=== PATIENT | male | born 1970 | race Caucasian/White ===

== ENCOUNTER 2018-01-27 15:10 | Emergency (ER) | payer OTHER ==
[2018-01-27] MEDS ORDERED: NA CHLORIDE 0.9% 2,000 ML ONE (15:33)
--- NOTE | 2018-01-27 15:39 | RAD REPORT ---
EXAM DESCRIPTION: CT - Head Brain Wo Cont - 01/27/2018 3:31 pm CLINICAL HISTORY: Blurred vision COMPARISON: 2007 TECHNIQUE: Computed axial tomography of the head was obtained. IV contrast was not requested. All CT scans are performed using dose optimization technique as appropriate and may include automated exposure control or mA/KV adjustment according to patient size. FINDINGS: An intracranial bleed is not seen . The ventricles are normal in caliber. No extra-axial fluid collection is noted. Moderate ethmoid sinusitis is present. IMPRESSION: No acute intracranial abnormality is seen. If patient's symptoms persist MRI of the bra in would be recommended. The exam was discussed with Dr Wallace in the Emergency Room at approximately 3:25 p.m. January 27, 2018
[2018-01-27 15:41] LABS: Absolute Lymphocytes (CBC) 1.1 K/uL (0.7-4.9); Absolute Monocytes 0.4 K/uL (0.1-1.3); Absolute Neutrophil 3.8 K/uL (1.8-8.0); Basophils % 0.4 % (0-1.3); Eosinophils % 0.7 % (0-4.4); Hematocrit 46.7 % (39.6-49.0); Lymphocytes % 20.6 % (15.3-44.8); MCH 28.7 pg (27.0-35.0); MCV 85.8 fL (80-100); MPV 8.3 fL (7.6-11.3); Monocytes % 7.1 % (3.3-12.3); RBC Red Blood Cell Count 5.44 M/uL (4.33-5.43)
[2018-01-27 15:43] LABS: Potassium 3.3 mEq/L (3.6-5.0)
[2018-01-27] MEDS ORDERED: NA CHLORIDE 0.9% 100 ML with POTASSIUM CL 10 MEQ IV ONE ×2 (17:00)
--- NOTE | 2018-01-27 17:37 | ER ---
Nurse's Notes [facility] Name: Yonatan Rosario Age: 47 yrs Sex: Male : 1970 Arrival Date: 01/27/2018 Time: 15:12 Bed 28 Private MD: Talib Muñoz Diagnosis: Dehydration;Alcohol dependence with withdrawal, unspecified;Hypokalemia Presentation: 01/27 15:12 Presenting complaint: Significant other states: "he has been sick with strep but today aa5 his vision started getting blurry and he started having slurred speech and then he stopped talking to me and he was just staring into space". Pt currently not speaking in triage. 15:12 Acuity: ARTUR 2 aa5 15:12 Transition of care: patient was not received from another setting of care. Onset of aa5 symptoms was January 27, 2018 at 13:30. Care prior to arrival: None. 15:12 Method Of Arrival: Wheelchair aa5 15:13 Note Pt taken to room 28, pt now speaking, pt currently A \\T\\ O x 4, hoarse voice noted, aa5 pt slow to answer questions, speech is not slurred at this time. 15:13 Transition of care: patient was not received from another setting of care. No acute aj neurological deficit is noted. Pre-hospital glucose is not applicable to this patient. Onset of symptoms was January 27, 2018. Risk Assessment: Do you want to hurt yourself or someone else? Patient reports no desire to harm self or others. Care prior to arrival: None. 15:13 Acuity: ARTUR 3 aj 15:13 Method Of Arrival: Wheelchair aj 18:07 Initial Sepsis Screen: Does the patient meet any 2 criteria? No. Patient's initial rk2 sepsis screen is negative. 18:07 Initial Sepsis Screen: Does the patient have a suspected source of infection? No. rk2 Patient's initial sepsis screen is negative. Triage Assessment: 18:06 The onset of the patients symptoms was January 27, 2018 at 18:06. General: Appears in no rk2 apparent distress. Stroke Activation: Symtpom onset >3 hours and < 6 hours Physician: Stroke Attending; Name: not notified; Notified At: 15:13; Arrived At: Physician: Chief Stroke Resident; Name: not notified; Notified At: 15:13; Arrived At: Physician: Stroke Resident; Name: ; Notified At: 15:13; Arrived At: Physician: ED Attending; Name: ; Notified At: 15:13; Arrived At: Physician: ED Resident; Name: ; Notified At: ; Arrived At: Historical: - Allergies: 15:15 No Known Allergies; aa5 - PMHx: 15:15 None; aa5 - PSHx: 15:15 None; aa5 - Immunization history:: Adult Immunizations up to date. - Family history:: not pertinent. - Social history:: Smoking status: Patient/guardian denies using tobacco, Patient uses alcohol, Patient reports being a heavy drinker that stopped 2 weeks ago and is in a program for alcohol addiction. - Ebola Screening: : Patient negative for fever greater than or equal to 101.5 degrees Fahrenheit, and additional compatible Ebola Virus Disease symptoms. - Hospitalizations: : No recent hospitalization is reported. Screenin:40 Abuse screen: Denies threats or abuse. Denies injuries from another. Nutritional aj screening: No deficits noted. Tuberculosis screening: No symptoms or risk factors identified. Fall Risk None identified. Assessment: 15:40 The patient has not been NPO before screening. The patient is alert, and able to follow aj commands. The patient does not exhibit slurred or garbled speech. The patient is not exhibiting difficulty speaking. The patient does not exhibit difficulty understanding words. Patient tolerated one teaspoon of water. No drooling, immediate coughing, gurgling, or clearing of the throat was noted. The patient tolerated 90mL of water. No drooling, immediate coughing, gurgling, or clearing of the throat was noted. The patient passed the bedside swallow screening. Oral medications may be given as ordered. Contact Physician for further diet orders. Provider notified of bedside swallow screening results: Terry Wallace MD. T-PA (Activase) Screening: Contraindications: Other: Provider declined. General: Appears in no apparent distress. comfortable, Behavior is calm, cooperative, appropriate for age. Pain:. Neuro: Level of Consciousness is awake, alert, obeys commands, Oriented to person, place, time, situation, Appropriate for age Legal Receptionist are equal bilaterally Moves all extremities. Full function Gait is steady, Speech is normal, Facial symmetry appears normal, Pupils are PERRLA, Intact. Respiratory: Airway is patent Respiratory effort is even, unlabored, Respiratory pattern is regular, symmetrical. EENT: Reports pain when swallowing. Derm: Skin is intact, is healthy with good turgor, Skin is pink, warm \\T\\ dry. normal. 17:15 Reassessment: Pt. resting in room \\T\\ this time, iv fluids and K+ infusing... family \\T\\ rk 2 bedside. Pt. is alert/oriented x 4. Vital Signs: 15:15 BP 144 / 86; Pulse 97; Resp 16 S; Pulse Ox 100% on R/A; aa5 15:40 BP 144 / 86; Pulse 64; Resp 16; Pulse Ox 100% on R/A; aj 17:00 BP 132 / 86; Pulse 86; Resp 17; Pulse Ox 100% on R/A; rk2 18:00 BP 145 / 85; Pulse 97; Resp 17; Pulse Ox 100% on R/A; rk2 NIH Stroke Scale Scores: 15:40 NIHSS Score: 0 aj ED Course: 15:12 Patient arrived in ED. iw 15:13 Arm band placed on Patient placed in an exam room, on a stretcher. aa5 15:15 Terry Wallace MD is Attending Physician. rn 15:18 Initial lab(s) drawn, by nd, sent to lab. Inserted saline lock: 20 gauge in left iw antecubital area, using aseptic technique. Blood collected. 15:21 Pina Xie, RN is Primary Nurse. aj 15:[address] via stretcher. nj 15:23 Triage completed. aa5 15:26 CT completed. Patient tolerated procedure well. Patient moved back from CT. nj 15:31 CT Head Brain wo Cont In Process Unspecified. EDMS 15:36 Talib Muñoz MD is Private Physician. as 15:40 Patient has correct armband on for positive identification. Placed in gown. Bed in low aj position. Call light in reach. Side rails up X 1. Adult w/ patient. site monitor on. Pulse ox on. NIBP on. 15:42 X-ray completed. Portable x-ray completed in exam room. Patient tolerated procedure bb2 well. 15:43 CXR XRAY - STROKE In Process Unspecified. EDMS 15:49 EKG done, by engineering technician parking. reviewed by Terry Wallcae MD. at1 17:35 Talib Muñoz MD is Referral Physician. rn 18:06 No provider procedures requiring assistance completed. IV discontinued. rk2 Administered Medications: 15:35 Drug: NS 0.9% 1000 ml Route: IV; Rate: 1000 ml; Site: left antecubital; aj 16:30 Follow up: Response: No adverse reaction; IV Status: Completed infusion rk2 15:36 Drug: NS 0.9% 1000 ml Route: IV; Rate: 1000 ml; Site: left antecubital; aj 17:00 Follow up: Response: No adverse reaction; IV Status: Completed infusion rk2 16:55 Drug: Potassium Chloride 10 mEq Route: IV; Rate: calculated rate; Site: left rk2 antecubital; 17:58 Follow up: Response: No adverse reaction; IV Status: Completed infusion rk2 Point of Care Testing: Blood Glucose: 15:20 Blood Glucose: 126 mg/dL; iw Ranges: Outcome: 17:36 Discharge ordered by MD. rn 18:06 Discharged to home ambulatory. rk2 18:06 Condition: good 18:06 Discharge instructions given to patient, family. 18:09 Patient left the ED. rk2 NIH Stroke Scale - NIH Stroke Score Date: 01/27/2018 Time: 15:40 Total Score = 0 1a. Level of Consciousness (LOC) - 0(Alert) 1b. Level of Consciousness (LOC) (Year \\T\\ Age) - 0(Both) 1c. LOC Commands (Open \\T\\ Closes Eyes/E Business Project Manager) - 0(Both) 2. Best Gaze (Lateral Gaze Paresis) - 0(Normal) 3. Visual Field Loss - 0(No visual loss) 4. Facial Palsy - 0(Normal) 5a. Left Arm: Motor (10-second hold) - 0(No drift) 5b. Right Arm: Motor (10-second hold) - 0(No drift) 6a. Left Leg: Motor (5-second hold - always test supine) - 0(No drift) 6b. Right Leg: Motor (5-second hold - always test supine) - 0(No drift) 7. Limb Ataxia (finger/nose \\T\\ heel/chandler - test with eyes open) - 0(Absent) 8. Sensory Loss (pinprick arms/legs/face) - 0(Normal) 9. Best Language: Aphasia (description/naming/reading) - 0(No aphasia) 10. Dysarthria (speech clarity - read or repeat words) - 0(Normal) 11. Extinction and Inattention (visual/tactile/auditory/spatial/personal) - 0(No abnormality) Initials: stan Signatures: Dispatcher [employer] Pina Caicedo, RN RN Alissa Alonzo Irene, RN RN Terry Cheema MD MD rn Calderon, Audri RN RN aa5 Pina gutierres, gis technician EKG Tat1 Rodolfo Mcnulty Brittany bb2 Karen Garcia RN RN rk2
--- NOTE | 2018-01-27 17:37 | EDPHYS ---
Physician Documentation [facility] Name: Yonatan Rosario Age: 47 yrs Sex: Male : 1970 Arrival Date: 01/27/2018 Time: 15:12 Bed 28 Private MD: Talib Muñoz ED Physician Terry Wallace HPI: 01/27 15:35 This 47 yrs old Male presents to ER via Wheelchair with complaints of AMS. rn 15:35 The patient presents with decreased responsiveness. Onset: The symptoms/episode rn began/occurred today. Possible causes: unknown. Associated signs and symptoms: Pertinent positives: confusion, lightheadedness, weakness. Current symptoms: In the emergency department the patient's symptoms are unchanged from the initial presentation. The patient has experienced similar episodes in the past. Family reports diagnosed with strep recently and told had scarlet fever at ER, given abx, + a few days of generalized weakness, got worse today, having difficulty standing up due to weakness, similar presentations in past with heat stroke per family, family reports difficulty speaking but has now improved, patient denies pain, follows commands, moves all 4 extremities, appears weak all over and dehydrated.. Historical: - Allergies: 15:15 No Known Allergies; aa5 - PMHx: 15:15 None; aa5 - PSHx: 15:15 None; aa5 - Immunization history:: Adult Immunizations up to date. - Family history:: not pertinent. - Social history:: Smoking status: Patient/guardian denies using tobacco, Patient uses alcohol, Patient reports being a heavy drinker that stopped 2 weeks ago and is in a program for alcohol addiction. - Ebola Screening: : Patient negative for fever greater than or equal to 101.5 degrees Fahrenheit, and additional compatible Ebola Virus Disease symptoms. - Hospitalizations: : No recent hospitalization is reported. ROS: 15:35 Constitutional: Negative for fever, chills, and weight loss, Eyes: Negative for injury, rn pain, redness, and discharge, Neck: Negative for injury, pain, and swelling, Cardiovascular: Negative for chest pain, palpitations, and edema, Respiratory: Negative for shortness of breath, cough, wheezing, and pleuritic chest pain, Abdomen/GI: Negative for abdominal pain, nausea, vomiting, diarrhea, and constipation, + decreased appetite Back: Negative for injury and pain, MS/Extremity: Negative for injury and deformity, Skin: Negative for injury, rash, and discoloration, Neuro: Negative for, numbness, tingling, and seizure. Exam: 15:35 Constitutional: This is a well developed, well nourished patient who is awake, alert, rn and in no acute distress. Head/Face: Normocephalic, atraumatic. Eyes: Pupils equal round and reactive to light, extra-ocular motions intact. Lids and lashes normal. Conjunctiva and sclera are non-icteric and not injected. Cornea within normal limits. Periorbital areas with no swelling, redness, or edema. Neck: Trachea midline, no thyromegaly or masses palpated, and no cervical lymphadenopathy. Supple, full range of motion without nuchal rigidity, or vertebral point tenderness. No Meningismus. Cardiovascular: Regular rate and rhythm with a normal S1 and S2. No gallops, murmurs, or rubs. Normal PMI, no JVD. No pulse deficits. Respiratory: Lungs have equal breath sounds bilaterally, clear to auscultation and percussion. No rales, rhonchi or wheezes noted. No increased work of breathing, no retractions or nasal flaring. Abdomen/GI: Soft, non-tender, with normal bowel sounds. No distension or tympany. No guarding or rebound. No evidence of tenderness throughout. Skin: Warm, dry with normal turgor. Normal color with no rashes, no lesions, and no evidence of cellulitis. MS/ Extremity: Pulses equal, no cyanosis. Neurovascular intact. Full, normal range of motion. Equal circumference. Neuro: Awake and alert, GCS 15, oriented to person, place, time, and situation. Cranial nerves II-XII grossly intact. Motor strength 5/5 in all extremities. Sensory grossly intact. + generalized tremor and tongue fasciculations. Vital Signs: 15:15 BP 144 / 86; Pulse 97; Resp 16 S; Pulse Ox 100% on R/A; aa5 15:40 BP 144 / 86; Pulse 64; Resp 16; Pulse Ox 100% on R/A; aj 17:00 BP 132 / 86; Pulse 86; Resp 17; Pulse Ox 100% on R/A; rk2 18:00 BP 145 / 85; Pulse 97; Resp 17; Pulse Ox 100% on R/A; rk2 NIH Stroke Scale Scores: 15:40 NIHSS Score: 0 aj MDM: 15:15 Patient medically screened. rn 15:26 ED course: GCS 3, NIH 0, family reports recent fever/headache, diagnosed with strep, + rn generalized weakness over last few days but worse today. Normal neuro exam except for generalized tremor and tongue fasciculations. Possible alcohol withdrawal with dehydration, family reports similar symptoms in past and diagnosed with heat stroke. . 15:32 ED course: Head CT normal. No indication for TPA, normal neuro exam. . rn 17:35 Differential Diagnosis: electrolyte abnormality, hypoglycemia, intracranial bleed, rn volume depletion. Data reviewed: vital signs, nurses notes, lab test result(s), EKG, radiologic studies, CT scan, plain films, and as a result, I will discharge patient. Counseling: I had a detailed discussion with the patient and/or guardian regarding: the historical points, exam findings, and any diagnostic results supporting the discharge/admit diagnosis, lab results, radiology results, the need for outpatient follow up, to return to the emergency department if symptoms worsen or persist or if there are any questions or concerns that arise at home. Response to treatment: the patient's symptoms have markedly improved after treatment, the patient's condition has returned to base line, patient is well hydrated. and as a result, I will discharge patient. Special discussion: I discussed with the patient/guardian in detail that at this point there is no indication for admission to the hospital. It is understood, however, that if the symptoms persist or worsen the patient needs to return immediately for re-evaluation. 01/27 15:25 Order name: CBC with Diff; Complete Time: 16:01/27 15:25 Order name: Basic Metabolic Panel; Complete Time: 16:01/27 15:25 Order name: CT Head Brain wo Cont; Complete Time: 16:01/27 15:25 Order name: Procalcitonin; Complete Time: 16:01/27 15:25 Order name: Lagrange Screen Profile; Complete Time: 16:01/27 15:25 Order name: Troponin (emerg Dept Use Only); Complete Time: 16:01/27 15:25 Order name: IV Start; Complete Time: 15:01/27 15:25 Order name: EKG; Complete Time: 15:01/27 15:25 Order name: EKG - Nurse/Tech; Complete Time: 15:36 rn 01/27 15:37 Order name: CXR XRAY - STROKE bd Administered Medications: 15:35 Drug: NS 0.9% 1000 ml Route: IV; Rate: 1000 ml; Site: left antecubital; aj 16:30 Follow up: Response: No adverse reaction; IV Status: Completed infusion rk2 15:36 Drug: NS 0.9% 1000 ml Route: IV; Rate: 1000 ml; Site: left antecubital; aj 17:00 Follow up: Response: No adverse reaction; IV Status: Completed infusion rk2 16:55 Drug: Potassium Chloride 10 mEq Route: IV; Rate: calculated rate; Site: left rk2 antecubital; 17:58 Follow up: Response: No adverse reaction; IV Status: Completed infusion rk2 Point of Care Testing: Blood Glucose: 15:20 Blood Glucose: 126 mg/dL; iw Ranges: Critical Glucose Levels:Adult <50 mg/dl or >400 mg/dl <40 mg/dl or >180 mg/dl Disposition: 01/27/18 17:36 Discharged to Home. Impression: Dehydration, Alcohol dependence with withdrawal, unspecified, Hypokalemia. - Condition is Stable. - Discharge Instructions: Alcohol Withdrawal, Dehydration, Adult, Potassium Content of Foods, Hypokalemia. - Medication Reconciliation Form, Thank You Letter, Antibiotic Education, Prescription Opioid Use form. - Follow up: Talib Muñoz MD; When: As needed; Reason: Recheck today's complaints, Re-evaluation by your physician. - Problem is new. - Symptoms have improved. NIH Stroke Scale - NIH Stroke Score Date: 01/27/2018 Time: 15:40 Total Score = 0 1a. Level of Consciousness (LOC) - 0(Alert) 1b. Level of Consciousness (LOC) (Year \T\ Age) - 0(Both) 1c. LOC Commands (Open \T\ Closes Eyes/Powder Shoveler) - 0(Both) 2. Best Gaze (Lateral Gaze Paresis) - 0(Normal) 3. Visual Field Loss - 0(No visual loss) 4. Facial Palsy - 0(Normal) 5a. Left Arm: Motor (10-second hold) - 0(No drift) 5b. Right Arm: Motor (10-second hold) - 0(No drift) 6a. Left Leg: Motor (5-second hold - always test supine) - 0(No drift) 6b. Right Leg: Motor (5-second hold - always test supine) - 0(No drift) 7. Limb Ataxia (finger/nose \T\ heel/chandler - test with eyes open) - 0(Absent) 8. Sensory Loss (pinprick arms/legs/face) - 0(Normal) 9. Best Language: Aphasia (description/naming/reading) - 0(No aphasia) 10. Dysarthria (speech clarity - read or repeat words) - 0(Normal) 11. Extinction and Inattention (visual/tactile/auditory/spatial/personal) - 0(No abnormality) Initials: stan Signatures: Dispatcher [employer] EDPina Zheng RN Terry Marin MD MD rn Calderon, Audri RN RN aa5 Karen Garcia RN RN rk2 Corrections: (The following items were deleted from the chart) 18:09 17:36 01/27/2018 17:36 Discharged to Home. Impression: Dehydration; Alcohol rk2 dependence with withdrawal, unspecified; Hypokalemia. Condition is Stable. Forms are Medication Reconciliation Form, Thank You Letter, Antibiotic Education, Prescription Opioid Use. Follow up: Talib Muñoz; When: As needed; Reason: Recheck today's complaints, Re-evaluation by your physician. Problem is new. Symptoms have improved. rn
--- NOTE | 2018-01-27 19:32 | RAD REPORT ---
EXAM DESCRIPTION: Puneet Single View01/27/2018 3:45 pm CLINICAL HISTORY: Chest pain COMPARISON: February 2017 FINDINGS: The lungs appear clear of acute infiltrate. The heart is normal size IMPRESSION: No acute abnormalities displayed
--- NOTE | 2018-01-28 07:42 | EKG ---
Test Date: 2018-01-27 Test Time: 15:32:19 Channel Executive: MISBAH/ MEASUREMENT RESULTS: Intervals: Rate: 95 RI: 128 QRSD: 88 QT: 350 QTc: 439 Evant: P: 55 RI: 128 QRS: 64 T: 49 INTERPRETIVE STATEMENTS: Normal sinus rhythm Normal ECG Compared to ECG 03/07/2017 18:13:31 No significant changes Electronically Signed On 01-28-18 07:41:52 CDT by Cm Villatoro
== END 2018-01-27 18:09 | disposition home or self-care (01) ==
LOC: ER 15:10
DX: E86.0 Dehydration (principal); F10.239 Alcohol dependence with withdrawal, unspecified; E87.6 Hypokalemia; Z72.0 Tobacco use
CPT/HCPCS: 36415; 70450; 71045; 80048; 82962; 84145; 84484; 85025; 86308; 93005; 96361; 96365; 99285; J7030

== ENCOUNTER 2018-05-04 06:40 | Emergency (ER) | payer OTHER ==
--- OUTSIDE RECORDS SUMMARY | 2018-05-04 06:42 | XMS REPORT | Clinical Summary ---
:1970 Author Organization [facility] Address [address] [place] [address] Care Team Providers Name Role Phone Talib Muñoz MD Primary Care Provider Allergies No Known Allergies Current Medications Prescription Sig. Disp. Refills Start Date End Date Status ibuprofen (ADVIL,MOTRIN) Take 200 mg by Active 200 MG tablet mouth every 6 (six) hours as needed for mild pain. Active Problems Problem Noted Date HNP (herniated nucleus pulposus), lumbar 02/19/2018 Acute bilateral low back pain with left-sided sciatica 02/19/2018 Lumbar radiculopathy, chronic 02/19/2018 Encounters Date Type Specialty Care Team Description 05/01/2018 Refill Robert Bell MD 03/03/2018 Telephone Neurosurgery Aneta Tolentino LVN 02/19/2018 Hospital Encounter Robert Antoine MD 02/19/2018 Hospital Encounter Robert Antoine, Acute low back pain, unspecified back pain laterality, with sciatica presence unspecified; Lumbar radiculopathy 02/19/2018 Hospital Encounter Robert Antoine, Acute low back pain, unspecified back pain laterality, with sciatica presence unspecified; Lumbar radiculopathy 02/19/2018 Office Visit Robert Bell, HNP (herniated nucleus pulposus), lumbar (Primary Dx); Acute bilateral low back pain with left-sided sciatica; Lumbar radiculopathy, chronic 02/19/2018 Procedure Pass Radiology 02/19/2018 Ancillary Orders Robert Antoine MD 02/19/2018 Orders Only Neurosurgery Aneta Tolentino LVN Acute bilateral low back pain, with sciatica presence unspecified (Primary Dx); Lumbar radiculopathy 02/19/2018 Orders Only Neurosurgery Aneta Tolentino LVN Acute low back pain, unspecified back pain laterality, with sciatica presence unspecified (Primary Dx ); Lumbar radiculopathy after 05/03/2017 Family History Medical History Relation Name Comments Arthritis Mother Hypertension Mother Relation Name Status Comments Mother Social History Tobacco Use Types Packs/Day Years Used Date Never Smoker Smokeless Tobacco: Current User Snuff Alcohol Use Drinks/Week oz/Week Comments Yes ocassional Sex Assigned at Date Recorded Not on file Last Filed Vital Signs Vital Sign Reading Time Taken Blood Pressure - - Pulse - - Temperature - - Respiratory Rate - - Oxygen Saturation - - Inhaled Oxygen Concentration - - Weight 76.2 kg (168 lb) 02/19/2018 3:10 PM CDT Height 167.6 cm (5' 6") 02/19/2018 3:10 PM CDT Body Mass Index 27.12 02/19/2018 3:10 PM CDT Plan of Treatment Health Maintenance Due Date Last Done Comments INFLUENZA VACCINE 03/25/2018 Procedures Procedure Name Priority Date/Time Associated Diagnosis Comments XR LUMBAR SPINE Routine 02/19/2018 5:07 Acute low back pain, Results for this COMPLETE W BENDING PM CDT unspecified back pain procedure are in laterality, with the results sciatica presence section. unspecified Lumbar radiculopathy XR SPINE SCOLIOSIS Routine 02/19/2018 4:57 Acute low back pain, Results for this 2-3 VIEWS PM CDT unspecified back pain procedure are in laterality, with the results sciatica presence section. unspecified Lumbar radiculopathy MRI SPINE EXTERNAL Routine 12/03/2017 9:46 Results for this STUDY AM CDT procedure are in the results section. after 05/03/2017 Results XR Lumbar Spine Complete W Flex and Ext (02/19/2018 5:07 PM) Narrative Performed At EXAMINATION:XR LUMBAR SPINE COMPLETE W FLEX & EXTEND RADIANT CLINICAL HISTORY:M54.5 Low back pain, M54.16 Radiculopathylumbar region, RADICULOPATHY COMPARISON:None. IMPRESSION: 6 views of lumbar spine were obtained. 5 nonrib-bearing lumbar type vertebrae. No pars defects on the oblique views. Lumbar spine alignment is within normal limits. Mild to moderate disc space narrowing and endplate degenerative changes at L4-5. No compression fractures or aggressive bony lesions. No abnormal motion on flexion-extension views. [facility]-[id number] Procedure Note Interface, Radiology Results Incoming - 02/19/2018 5:46 PM CDT EXAMINATION: XR LUMBAR SPINE COMPLETE W FLEX & EXTEND CLINICAL HISTORY: M54.5 Low back pain, M54.16 Radiculopathy lumbar region, RADICULOPATHY COMPARISON: None. IMPRESSION: 6 views of lumbar spine were obtained. 5 nonrib-bearing lumbar type vertebrae. No pars defects on the oblique views. Lumbar spine alignment is within normal limits. Mild to moderate disc space narrowing and endplate degenerative changes at L4- 5. No compression fractures or aggressive bony lesions. No abnormal motion on flexion-extension views. [facility]-[id number] Performing Organization Address [email or web address] Phone Number [facility] [address] [place] [address] XR Spine Scoliosos 2-3 Views (02/19/2018 4:57 PM) Narrative Performed At EXAMINATION:XR SPINE SCOLIOSIS 2-3 VIEWS [facility] CLINICAL HISTORY:M54.5 Low back pain, M54.16 Radiculopathylumbar region, radiculopathy COMPARISON:None. IMPRESSION: 8 views of the whole spine were obtained. Mild convexity of the mid thoracic spine to the right. Alignment in sagittal plane is within normal limits. No compression fractures or aggressive bony lesions. Mild multilevel endplate degenerative changes. [facility]-[id number] Procedure Note Interface, Radiology Results Incoming - 02/19/2018 5:22 PM CDT EXAMINATION: XR SPINE SCOLIOSIS 2-3 VIEWS CLINICAL HISTORY: M54.5 Low back pain, M54.16 Radiculopathy lumbar region, radiculopathy COMPARISON: None. IMPRESSION: 8 views of the whole spine were obtained. Mild convexity of the mid thoracic spine to the right. Alignment in sagittal plane is within normal limits. No compression fractures or aggressive bony lesions. Mild multilevel endplate degenerative changes. [facility]-[id number] Performing Organization Address [email or web address] Phone Number [facility] [address] [place] [address] MRI Spine External Study (12/03/2017 9:46 AM) Narrative Performed At This exam was not acquired at a [facility] facility and has not been RADIANT interpreted by a [facility] Provider.The exam was imported into our imaging system for comparisons purposes. Performing Organization Address [facility]/[employer] Phone Number [facility]BY [address] [place] [address] after 05/03/2017 Insurance Payer Benefit Plan / Group Subscriber ID Type Phone Address ENTRUST ENTRUST xxxxxxxxx Commercial Home: [phone] [place] [phone]
--- OUTSIDE RECORDS SUMMARY | 2018-05-04 06:42 | XMS REPORT | Continuity of Care Document ---
:1970 Author Organization Interface Problems Problem Status Onset Classification Date Comments Source Date Reported J40 - Active OPID "BRONCHITIS, 7 Four States NOT SPECIFIED A" Medications Medication Details Route Status Patient Ordering Order Source Instructions Provider Date Allergies, Adverse Reactions, Alerts Substance Category Reaction Severity Reaction Status Date Comments Source type Reported Immunizations Immunization Date Given Site Status Last Updated Comments Source Results Order Results Value Reference Date Interpretation Comments Source Name Range Chest 2 Chest 2 EXAM: Chest 2 views DX OPID views DX views DX 2016 - Sugar HISTORY: R05 Cough, J40 Bronchitis, not specified as acute or chronic - cough/ shortness of breath, R05 Cough, J40 Bronchitis, not specified as acute or chronic [place] COMPARISON: None Read by: Lindsay Stovall MD Dictated Date/time: 05/19/17 14:45 Electronically Signed by: Lindsay Stovall MD 05/19/17 14:46 FINAL REPORT The heart size is normal and the lungs are clear. There is no pleural effusion or pneumothorax. No acute skeletal abnormality. IMPRESSION: No acute abnormality. Vital Signs Vital Sign Value Date Comments Source Encounters Location Location Encounter Encounter Reason Attending ADM DC Status Source Details Type Number For Provider Date Date Visit Outpatient [id number] WARREN 05/19 Active [facility] Procedures Procedure Code Date Perfomer Comments Source
[2018-05-04] MEDS ORDERED: TETRACAINE HCL 0.5% 2ML OPTH ONE (06:58)
[2018-05-04] MEDS ORDERED: FLUORESCEIN SODIUM 0.6 MG/WRAP ONE (06:59)
[2018-05-04] MEDS ORDERED: TETANUS & DIPHTHERIA TOX,ADULT 0.5 ML VIAL ONE (07:15)
[2018-05-04] MEDS ORDERED: TOBRAMYCIN SULF 0.3% OPTH OINT ONE (07:56)
[2018-05-04] MEDS ORDERED: GENTAMICIN 0.3% OPTH DROP 5ML ONE (07:58)
--- NOTE | 2018-05-04 08:02 | EDPHYS ---
Physician Documentation [facility] Name: Yonatan Rosario Age: 47 yrs Sex: Male : 1970 Arrival Date: 05/04/2018 Time: 06:43 Bed 8 Private MD: Talib Muñoz ED Physician Edouard Vila HPI: 05/04 07:50 This 47 yrs old Male presents to ER via Ambulatory with complaints of Right pm1 eye foreign body sensation. 07:50 The patient is experiencing foreign body sensation, pain, The patient sustained pm1 Unknown. 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 Onset: The symptoms/episode began/occurred 2 day(s) ago. Duration: the symptoms are continuous. Aggravated by nothing. Alleviated by nothing. Associated signs and symptoms: Pertinent positives: blurred right vision, Pertinent negatives: fever, eye matting or drainage. Patient does not utilize any form of vision correction. Severity of symptoms: in the emergency department the symptoms are worse. The patient has not experienced similar symptoms in the past. The patient has not recently seen a physician. Patient wearing eye mcgee while cutting metal and wood on Friday. 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 Historical: - Allergies: 06:59 No Known Allergies; bp - Home Meds: 06:59 methylprednisolone 16 mg Oral tab 1 tab three times a day [Active]; gabapentin 300 mg bp oral cap 1 cap 3 times per day [Active]; Flexeril 10 mg Oral tab 1 tab 3 times per day [Active]; - PMHx: 06:59 Back pain; bp - Immunization history:: Adult Immunizations up to date, Last tetanus immunization: unknown. - Social history:: Smoking status: Patient uses tobacco products, chewing tobacco. - Ebola Screening: : Patient negative for fever greater than or equal to 101.5 degrees Fahrenheit, and additional compatible Ebola Virus Disease symptoms Patient denies exposure to infectious person Patient denies travel to an Ebola-affected area in the 21 days before illness onset No symptoms or risks identified at this time. ROS: 07:50 Constitutional: Negative for fever, chills, and weight loss, ENT: Negative for injury, pm1 pain, and discharge, Neck: Negative for injury, pain, and swelling, Cardiovascular: Negative for chest pain, palpitations, and edema, Respiratory: Negative for shortness of breath, cough, wheezing, and pleuritic chest pain, Abdomen/GI: Negative for abdominal pain, nausea, vomiting, diarrhea, and constipation, Back: Negative for injury and pain, MS/Extremity: Negative for injury and deformity, Skin: Negative for injury, rash, and discoloration. 07:50 Neuro: Negative for headache, weakness, numbness, tingling, and seizure. 07:50 Eyes: Positive for blurry vision, foreign body sensation, pain, Negative for discharge, itching, matting. Exam: 07:50 Visual Acuity: I have reviewed the nursing documentation. pm1 07:50 Constitutional: This is a well developed, well nourished patient who is awake, alert, and in no acute distress. Head/Face: Normocephalic, atraumatic. 07:50 ENT: Nares patent. No nasal discharge, no septal abnormalities noted. Tympanic membranes are normal and external auditory canals are clear. Oropharynx with no redness, swelling, or masses, exudates, or evidence of obstruction, uvula midline. Mucous membranes moist. Neck: Trachea midline, no thyromegaly or masses palpated, and no cervical lymphadenopathy. Supple, full range of motion without nuchal rigidity, or vertebral point tenderness. No Meningismus. Chest/axilla: Normal chest wall appearance and motion. Nontender with no deformity. No lesions are appreciated. Cardiovascular: Regular rate and rhythm with a normal S1 and S2. No gallops, murmurs, or rubs. Normal PMI, no JVD. No pulse deficits. Respiratory: Lungs have equal breath sounds bilaterally, clear to auscultation and percussion. No rales, rhonchi or wheezes noted. No increased work of breathing, no retractions or nasal flaring. Abdomen/GI: Soft, non-tender, with normal bowel sounds. No distension or tympany. No guarding or rebound. No evidence of tenderness throughout. Back: No spinal tenderness. No costovertebral tenderness. Full range of motion. Skin: Warm, dry with normal turgor. Normal color with no rashes, no lesions, and no evidence of cellulitis. MS/ Extremity: Pulses equal, no cyanosis. Neurovascular intact. Full, normal range of motion. 07:50 Eyes: Periorbital structures: appear normal, Pupils: no acute changes, normal size, shape is regular, normal accomodation, normal reaction to light, Extraocular movements: intact throughout, Conjunctiva: normal, Corneas: foreign body, on the right, at 3 o'clock, small black speck, a fluorescein strip employed to appreciate the findings, Sclera: no appreciated abnormality, Lids and lashes: upper right eyelid with mild swelling. 07:50 Neuro: Orientation: is normal, Motor: is normal, moves all fours, Gait: is steady, at a normal pace, without difficulty. Vital Signs: 06:59 BP 142 / 104; Pulse 72; Resp 16; Temp 97.7; Pulse Ox 100% ; Weight 81.65 kg; Height 5 bp ft. 6 in. (167.64 cm); 07:14 BP 124 / 89; Pulse 82; Resp 17; Pulse Ox 99% on R/A; tw2 08:07 BP 132 / 96; Pulse 76; Resp 17; Pulse Ox 99% on R/A; tw2 06:59 Body Mass Index 29.05 (81.65 kg, 167.64 cm) bp Visual Acuity: 07:12 Left Eye Visual acuity 20/20, ; Right Eye Visual acuity 20/50, ; Both Eyes Visual dh3 acuity 20/20; Without Lenses; Procedures: 07:50 Foreign Body Removal: black speck at 3 o'clock of cornea, from the right eye, pm1 conjunctiva by using a cotton-tipped swab, The patient tolerated the removal well. MDM: 06:46 Patient medically screened. pm1 07:50 Data reviewed: vital signs. Data interpreted: Pulse oximetry: on room air is 99 %. pm1 Interpretation: normal. Counseling: I had a detailed discussion with the patient and/or guardian regarding: the historical points, exam findings, and any diagnostic results supporting the discharge/admit diagnosis. 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 Exp: tw2 05/21/2020. Lot #: [id number]. } Route: IM; Site: right deltoid; 07:57 Follow up: Response: No adverse reaction tw2 07:40 Drug: Tetracaine Drops 0.5 % 1 drops {Note: by MATEUSZ Kitchen.} Route: Ophthalmic; tw2 Site: right eye; 07:53 Follow up: Response: No adverse reaction tw2 07:55 Drug: Gentamicin Drops 0.3 % 2 drops Route: Ophthalmic; Site: right eye; tw2 07:57 Follow up: Response: No adverse reaction tw2 07:57 CANCELLED (not available in pxysis): ToBREx Drops (0.3 %) 2 drops Ophthalmic once tw2 Disposition: 05/04/18 08:01 Discharged to Home. Impression: Injury of conjunctiva and corneal abrasion without foreign body, right eye - foreign body removed. - Condition is Stable. - Discharge Instructions: Corneal Abrasion, Eye Foreign Body. - Prescriptions for Vigamox 0.5 % Ophthalmic Drops - instill 1 drop by OPHTHALMIC route every 8 hours for 7 days; 5 milliliter. - Medication Reconciliation Form, Thank You Letter, Antibiotic Education, Prescription Opioid Use, Work release form form. - Follow up: Wei Marino MD; When: 1 - 2 days; Reason: Recheck today's complaints, Continuance of care, Re-evaluation by your physician. - Problem is new. - Symptoms have improved. Addendum: 05/05/2018 19:05 Co-signature as Attending Physician, Edouard Vila MD. p Signatures: Edouard Vila MD MD pkl Alexis Che, [place] VIDEO PRESENTATION OPERATOR pm1 Lachelle Garcia RN RN tw2 Les Snyder RN RN bp Corrections: (The following items were deleted from the chart) 05/04 07:57 07:49 ToBREx Drops (0.3 %) 2 drops Ophthalmic once ordered. pm1 tw2 08:02 08:01 05/04/2018 08:01 Discharged to Home. Impression: Injury of conjunctiva and pm1 corneal abrasion without foreign body, right eye - foreign body removed. Condition is Stable. Forms are Work release form, Medication Reconciliation Form, Thank You Letter, Antibiotic Education, Prescription Opioid Use. pm1 08:10 08:02 05/04/2018 08:01 Discharged to Home. Impression: Injury of conjunctiva and tw2 corneal abrasion without foreign body, right eye - foreign body removed. Condition is Stable. Forms are Work release form, Medication Reconciliation Form, Thank You Letter, Antibiotic Education, Prescription Opioid Use. Follow up: Wei Marino; When: 1 - 2 days; Reason: Recheck today's complaints, Continuance of care, Re-evaluation by your physician. Problem is new. Symptoms have improved. pm1
--- NOTE | 2018-05-04 08:02 | ER ---
Nurse's Notes [facility] Name: Yonatan Rosario Age: 47 yrs Sex: Male : 1970 Arrival Date: 05/04/2018 Time: 06:43 Bed 8 Private MD: Talib Muñoz Diagnosis: Injury of conjunctiva and corneal abrasion without foreign body, right eye-foreign body removed Presentation: 05/04 06:45 Presenting complaint: Patient states: R EYE FB SENSATION WITH REDNESS/SWELLING AND bp BLURRY VISION. Transition of care: patient was not received from another setting of care. Mechanism of Injury: Environmental exposure FIBERGLASS AND LUMBER. The patient reports a positive loss of vision. The patient's loss of vision began gradually 1 day ago. Onset of symptoms was May 02, 2018. Risk Assessment: Do you want to hurt yourself or someone else? Patient reports no desire to harm self or others. Initial Sepsis Screen: Does the patient meet any 2 criteria? No. Patient's initial sepsis screen is negative. Does the patient have a suspected source of infection? No. Patient's initial sepsis screen is negative. Care prior to arrival: None. 06:45 Method Of Arrival: Ambulatory bp 06:45 Acuity: ARTUR 3 bp Triage Assessment: 06:59 General: Appears in no apparent distress. comfortable, Behavior is calm, cooperative, bp appropriate for age. Pain: Complains of pain in right eye. EENT: Eyes are tearing on outer aspect of conjuctiva of right eye, iris of right eye, inner aspect of conjuctiva of right eye and right inner canthus. Neuro: Level of Consciousness is awake, alert, obeys commands, Oriented to person, place, time, situation, Appropriate for age. Cardiovascular: No deficits noted. Respiratory: Airway is patent Respiratory effort is even, unlabored, Respiratory pattern is regular, symmetrical. GI: No signs and/or symptoms were reported involving the gastrointestinal system. : No signs and/or symptoms were reported regarding the genitourinary system. Derm: No deficits noted. Musculoskeletal: Circulation, motion, and sensation intact. Range of motion: intact in all extremities. Historical: - Allergies: 06:59 No Known Allergies; bp - Home Meds: 06:59 methylprednisolone 16 mg Oral tab 1 tab three times a day [Active]; gabapentin 300 mg bp oral cap 1 cap 3 times per day [Active]; Flexeril 10 mg Oral tab 1 tab 3 times per day [Active]; - PMHx: 06:59 Back pain; bp - Immunization history:: Adult Immunizations up to date, Last tetanus immunization: unknown. - Social history:: Smoking status: Patient uses tobacco products, chewing tobacco. - Ebola Screening: : Patient negative for fever greater than or equal to 101.5 degrees Fahrenheit, and additional compatible Ebola Virus Disease symptoms Patient denies exposure to infectious person Patient denies travel to an Ebola-affected area in the 21 days before illness onset No symptoms or risks identified at this time. Screenin:08 Abuse screen: Denies threats or abuse. Nutritional screening: No deficits noted. tw2 Tuberculosis screening: No symptoms or risk factors identified. Fall Risk None identified. Assessment: 07:05 Reassessment: see triage assessment. tw2 07:15 Reassessment: Patient appears in no apparent distress at this time. Patient and/or tw2 family updated on plan of care and expected duration. Pain level reassessed. Patient is alert, oriented x 3, equal unlabored respirations, skin warm/dry/pink. 08:09 EENT: Sclera/Cornea w/ abrasion noted on inner aspect of conjuctiva of right eye. tw2 08:10 Reassessment: Patient appears in no apparent distress at this time. Patient and/or tw2 family updated on plan of care and expected duration. Pain level reassessed. Patient is alert, oriented x 3, equal unlabored respirations, skin warm/dry/pink. Vital Signs: 06:59 BP 142 / 104; Pulse 72; Resp 16; Temp 97.7; Pulse Ox 100% ; Weight 81.65 kg; Height 5 bp ft. 6 in. (167.64 cm); 07:14 BP 124 / 89; Pulse 82; Resp 17; Pulse Ox 99% on R/A; tw2 08:07 BP 132 / 96; Pulse 76; Resp 17; Pulse Ox 99% on R/A; tw2 06:59 Body Mass Index 29.05 (81.65 kg, 167.64 cm) bp Visual Acuity: 07:12 Left Eye Visual acuity 20/20, ; Right Eye Visual acuity 20/50, ; Both Eyes Visual dh3 acuity 20/20; Without Lenses; ED Course: 06:43 Patient arrived in ED. al2 06:44 Talib Muñoz MD is Private Physician. al2 06:45 Alexis Che [facility]. pm1 06:45 Edouard Vila MD is Attending Physician. pm1 06:46 Les Snyder, HIRA is Primary Nurse. bp 06:55 Triage completed. bp 06:59 Arm band placed on. bp 07:00 Bed in low position. Call light in reach. Pulse ox on. NIBP on. tw2 07:10 Primary Nurse role handed off by Les Snyder, HIRA tw2 07:10 Lachelle Garcia RN is Primary Nurse. tw2 08:02 Wei Marino MD is Referral Physician. pm1 08:08 Assist provider with eye exam of right eye. using ophthalmoscope, Performed by Alexis Che NP Patient tolerated well. Patient did not have IV access during this emergency room visit. 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 Exp: 05/21/2020. Lot #: [id number]. } Route: IM; Site: right deltoid; 07:57 Follow up: Response: No adverse reaction tw2 07:40 Drug: Tetracaine Drops 0.5 % 1 drops {Note: by MATEUSZ Kitchen.} Route: Ophthalmic; tw2 Site: right eye; 07:53 Follow up: Response: No adverse reaction tw2 07:55 Drug: Gentamicin Drops 0.3 % 2 drops Route: Ophthalmic; Site: right eye; tw2 07:57 Follow up: Response: No adverse reaction tw2 07:57 CANCELLED (not available in pxysis): ToBREx Drops (0.3 %) 2 drops Ophthalmic once tw2 Outcome: 08:01 Discharge ordered by . pm1 08:09 Discharged to home ambulatory. tw2 08:09 Condition: stable 08:09 Discharge instructions given to patient, Instructed on discharge instructions, follow up and referral plans. medication usage, Demonstrated understanding of instructions, follow-up care, medications, Prescriptions given X 1. 08:10 Patient left the ED. tw2 Signatures: Alexis Che NP BEAM BUILDER pm1 Lachelle Garcia RN RN tw2 [facility] Les Snyder RN RN bp Love, Bree al2
== END 2018-05-04 08:10 | disposition home or self-care (01) ==
LOC: ER 06:40
PROC: 08C8XZZ Extirpation of Matter from Right Cornea, External Approach (ICD-10-PCS; principal; 2018-05-04)
DX: T15.91XA Foreign body on external eye, part unspecified, right eye, initial encounter (principal); S05.01XA Injury of conjunctiva and corneal abrasion without foreign body, right eye, initial encounter; X58.XXXA Exposure to other specified factors, initial encounter; Y93.89 Activity, other specified; Y92.89 Other specified places as the place of occurrence of the external cause; Z23 Encounter for immunization
CPT/HCPCS: 90714; 99284

== ENCOUNTER 2018-07-30 17:29 | Observation (INO) | payer OTHER ==
--- OUTSIDE RECORDS SUMMARY | 2018-07-30 17:31 | XMS REPORT | Clinical Summary ---
:1970 Author Organization [facility] Address [address] [place] [address] Care Team Providers Name Role Phone Talib Muñoz MD Primary Care Provider Allergies No Known Allergies Medications Medication Sig Dispensed Refills Start Date End Date Status ibuprofen Take 200 mg by 0 Active (ADVIL,MOTRIN) 200 MG mouth every 6 tablet (six) hours as needed for mild pain. Active Problems Problem Noted Date HNP (herniated nucleus pulposus), lumbar 02/19/2018 Acute bilateral low back pain with left-sided sciatica 02/19/2018 Lumbar radiculopathy, chronic 02/19/2018 Encounters Date Type Specialty Care Team Description 05/01/2018 Refill Robert Bell MD 03/03/2018 Telephone Neurosurgery Aneta Tolentino LVN 02/19/2018 Hospital Encounter Radiology Robert Dye MD 02/19/2018 Hospital Encounter Robert Antoine, Acute low back pain, unspecified back pain laterality, with sciatica presence unspecified; Lumbar radiculopathy 02/19/2018 Hospital Encounter Robert Antoine, Acute low back pain, unspecified back pain laterality, with sciatica presence unspecified; Lumbar radiculopathy 02/19/2018 Office Visit Robert Bell, HNP (herniated nucleus pulposus), lumbar (Primary Dx); Acute bilateral low back pain with left-sided sciatica; Lumbar radiculopathy, chronic 02/19/2018 Orders Only Neurosurgery Aneta Tolentino LVN Acute bilateral low back pain, with sciatica presence unspecified (Primary Dx); Lumbar radiculopathy 02/19/2018 Orders Only Neurosurgery Aneta Tolentino LVN Acute low back pain, unspecified back pain laterality, with sciatica presence unspecified (Primary Dx ); Lumbar radiculopathy after 07/29/2017 Family History Medical History Relation Name Comments Arthritis Mother Hypertension Mother Relation Name Status Comments Mother Social History Tobacco Use Types Packs/Day Years Used Date Never Smoker Smokeless Tobacco: Current User Snuff Alcohol Use Drinks/Week oz/Week Comments Yes ocassional Sex Assigned at Date Recorded Not on file Job Start Date Occupation Industry Not on file Not on file Not on file Travel History Travel Start Travel End No recent travel history available. Last Filed Vital Signs Vital Sign Reading [...] Date Last Done Comments INFLUENZA VACCINE 03/25/2018 HEPATITIS B VACCINES Aged Out No longer eligible based on patient's age to complete this topic IPV VACCINES Aged Out No longer eligible based on patient's age to complete this topic MENINGOCOCCAL VACCINE Aged Out No longer eligible based on patient's age to complete this topic Procedures Procedure Name Priority Date/Time Associated Diagnosis [...] procedure are in the results section. after 07/29/2017 Results XR Lumbar Spine Complete W Flex and Ext (02/19/2018 5:07 PM CDT) Narrative Performed At EXAMINATION:XR LUMBAR SPINE COMPLETE W FLEX & EXTEND [facility] CLINICAL HISTORY:M54.5 Low back pain, M54.16 Radiculopathylumbar region, RADICULOPATHY COMPARISON:None. IMPRESSION: 6 views of lumbar spine were obtained. 5 nonrib-bearing lumbar type vertebrae. No pars defects on the oblique views. Lumbar spine alignment is within normal limits. Mild to moderate disc space narrowing and endplate degenerative changes at L4-5. No compression fractures or aggressive bony lesions. No abnormal motion on flexion-extension views. [id number] Procedure Note Interface, Radiology Results Incoming - [...] lesions. No abnormal motion on flexion-extension views. [id number] Performing Organization Address [facility] Phone Number [facility] [address] [place] [address] XR Spine Scoliosos 2-3 Views (02/19/2018 4:57 PM CDT) Narrative Performed At EXAMINATION:XR SPINE SCOLIOSIS 2-3 VIEWS [facility] CLINICAL HISTORY:M54.5 Low back pain, M54.16 Radiculopathylumbar region, radiculopathy COMPARISON:None. IMPRESSION: 8 views of the whole spine were obtained. Mild convexity of the mid thoracic spine to the right. Alignment in sagittal plane is within normal limits. No compression fractures or aggressive bony lesions. Mild multilevel endplate degenerative changes. [facility]-[id number] Procedure Note Interface, Radiology Results Incoming - [...] bony lesions. Mild multilevel endplate degenerative changes. [id number] Performing Organization Address [facility] Phone Number [facility] [address] [place] [address] MRI Spine External Study (12/03/2017 9:46 AM CDT) Narrative Performed At This exam was not acquired at a [facility] facility and has not been [facility] interpreted by a [facility] Provider.The exam was imported into our imaging system for comparisons purposes. Performing Organization Address City/State/Zipcode Phone Number [facility] [address] [place] [address] after 07/29/2017 Insurance Payer Benefit Plan / Group Subscriber ID Type Phone Address ENTRUST ENTRUST xxxxxxxxx Commercial Guarantor Name Account Type Relation to Date of Phone Billing Patient Address Yonatan Rosario Personal/Family Self 1970 [id number] (Home) [place] [address] Advance Directives Patient has advance care planning documents on file. For more information, please contact:Martin Hernandez[address] [place] [address]
--- OUTSIDE RECORDS SUMMARY | 2018-07-30 17:31 | XMS REPORT | Continuity of Care Document ---
:1970 Author Organization Interface Problems Problem Status Onset Classification Date Comments Source Date Reported J40 - Active OPID "BRONCHITIS, 7 Eloy NOT SPECIFIED A" Medications Medication Details Route [...] Number For Provider Date Date Visit Outpatient [id number] WARREN 05/19 Active [facility] Procedures Procedure Code Date Perfomer Comments Source
[2018-07-30 18:31] LABS: Absolute Lymphocytes (CBC) 1.9 K/uL (0.7-4.9); Absolute Monocytes 0.5 K/uL (0.1-1.3); Absolute Neutrophil 3.5 K/uL (1.8-8.0); Basophils % 0.6 % (0-1.3); Eosinophils % 5.8 % (0-4.4); Hematocrit 43.6 % (39.6-49.0); Lymphocytes % 29.8 % (15.3-44.8); MCH 29.2 pg (27.0-35.0); MCV 83.1 fL (80-100); MPV 7.5 fL (7.6-11.3); Monocytes % 8.3 % (3.3-12.3); RBC Red Blood Cell Count 5.24 M/uL (4.33-5.43)
[2018-07-30 18:36] LABS: Bilirubin Direct 0.2 mg/dL (0-0.2); Bilirubin Total 0.5 mg/dL (0.2-1.0); Potassium 3.2 mmol/L (3.5-5.1); Protein, Total 7.8 g/dL (6.4-8.2)
[2018-07-30] MEDS ORDERED: NA CHLORIDE 0.9% 1,000 ML ONE ×2 (19:01→21:24)
[2018-07-30 19:25] LABS: Urine Blood 2+ (NEG); Urine Glucose NEGATIVE (NEG); Urine Protein NEGATIVE (NEG); Urine Specific Gravity 1.015 (1.005-1.030)
--- NOTE | 2018-07-30 19:52 | RAD REPORT ---
EXAM DESCRIPTION: CTAbdomen Pelvis W Contrast - 07/30/2018 7:44 pm CLINICAL HISTORY: Abdominal pain. Abd pain;Abdominal distention COMPARISON: CT ABD PELVIS W CONTRAST dated 01/27/2014 TECHNIQUE: Biphasic CT imaging of the abdomen and pelvis was performed with 100 ml non-ionic IV cont rast. All CT scans are performed using dose optimization technique as appropriate and may include automated exposure control or mA/KV adjustment according to patient size. FINDINGS: The lung bases are clear. The liver, spleen, pancreas, adrenal glands and kidneys are within normal limits. No bowel obstruction, free air, free fluid or abscess. The appendix is dilated to 14 mm with mild pe riappendiceal inflammation compatible with acute appendicitis. No evidence of significant lymphadeno sky. No suspicious bony findings. IMPRESSION: Acute appendicitis.
--- NOTE | 2018-07-30 20:40 | ER ---
Nurse's Notes [facility] Name: Yonatan Rosario Age: 47 yrs Sex: Male : 1970 Arrival Date: 07/30/2018 Time: 17:32 Bed 25 Private MD: Talib Muñoz Diagnosis: Acute appendicitis Presentation: 07/30 17:39 Presenting complaint: Patient states: I have been having abd pain for about a month but la1 it is getting worse, pt denies N/V/D. Transition of care: patient was not received from another setting of care. Onset of symptoms was July 30, 2018. Risk Assessment: Do you want to hurt yourself or someone else? Patient reports no desire to harm self or others. Initial Sepsis Screen: Does the patient meet any 2 criteria? No. Patient's initial sepsis screen is negative. Does the patient have a suspected source of infection? No. Patient's initial sepsis screen is negative. Care prior to arrival: None. 17:39 Method Of Arrival: Ambulatory la1 17:39 Acuity: ARTUR 3 la1 Triage Assessment: 18:15 General: Appears in no apparent distress. Behavior is cooperative, anxious. Pain: ls4 Complains of pain in left upper quadrant and right lower quadrant. GI: Abdomen is non-distended, Bowel sounds present X 4 quads. Abd is soft Abdomen is tender to palpation in left upper quadrant and right lower quadrant. : No signs and/or symptoms were reported regarding the genitourinary system. Historical: - Allergies: 17:40 No Known Allergies; la1 - PMHx: 17:40 Back pain; la1 - Immunization history:: Adult Immunizations up to date. - Social history:: Smoking status: Patient/guardian denies using tobacco. - Ebola Screening: : No symptoms or risks identified at this time. Screenin:51 Abuse screen: Denies threats or abuse. Denies injuries from another. Nutritional ls4 screening: No deficits noted. Tuberculosis screening: No symptoms or risk factors identified. Fall Risk None identified. Assessment: 18:14 Reassessment: FINISHED CONTRAST AT 1810. ls4 18:18 General: Appears in no apparent distress. Behavior is calm, cooperative. Neuro: No ls4 deficits noted. Respiratory: No deficits noted. Musculoskeletal: No deficits noted. 19:06 Reassessment: Patient appears in no apparent distress at this time. Patient and/or ls4 family updated on plan of care and expected duration. Pain level reassessed. Patient is alert, oriented x 3, equal unlabored respirations, skin warm/dry/pink. 19:58 Reassessment: Patient appears in no apparent distress at this time. Patient and/or ls4 family updated on plan of care and expected duration. Pain level reassessed. Patient is alert, oriented x 3, equal unlabored respirations, skin warm/dry/pink. 21:04 Reassessment: Patient appears in no apparent distress at this time. Patient and/or ls4 family updated on plan of care and expected duration. Pain level reassessed. Patient is alert, oriented x 3, equal unlabored respirations, skin warm/dry/pink. Vital Signs: 17:40 BP 140 / 90; Pulse 71; Resp 16; Temp 97.4; Pulse Ox 98% on R/A; Weight 81.65 kg; Height la1 5 ft. 6 in. (167.64 cm); 21:04 BP 138 / 86; Pulse 69; Resp 16; Temp 98.2; Pulse Ox 99% on R/A; Pain 3/10; ls4 17:40 Body Mass Index 29.05 (81.65 kg, 167.64 cm) la1 ED Course: 17:32 Patient arrived in ED. sb2 17:32 Talib Muñoz MD is Private Physician. sb2 17:39 Triage completed. la1 17:40 Arm band placed on right wrist. la1 17:40 Patient has correct armband on for positive identification. Allergy band placed. Fall ls4 risk band placed. Placed in gown. Bed in low position. Side rails up X2. 17:42 Mino Burrows PA is PHCP. cp 17:42 Terry Wallace MD is Attending Physician. cp 17:48 Luz Jose, HIRA is Primary Nurse. ls4 17:53 EKG done, by clinical laboratory technologist. reviewed by Mino BLACK. dt2 18:10 No provider procedures requiring assistance completed. Inserted saline lock: 18 gauge ls4 in left antecubital area, using aseptic technique. Blood collected. 18:15 Diet: PT FINISHED DRINKING PO CONTRAST. . ls4 19:[address] via wheelchair. ka 20:12 CT Abd/Pelvis - W/Contrast: give oral contrast In Process Unspecified. EDMS 20:37 Atul Fernandez MD is Hospitalizing Provider. cp 20:47 XRAY Chest (1 view) In Process Unspecified. EDMS Administered Medications: 19:04 Drug: NS 0.9% 1000 ml Route: IV; Rate: 1 bolus; Site: left antecubital; ls4 20:46 Follow up: IV Status: Completed infusion; IV Intake: 1000ml ls4 20:40 Drug: Zosyn 3.375 grams Route: IVPB; Infused Over: 60 mins; Site: left antecubital; ls4 21:24 Follow up: Response: No adverse reaction; IV Status: Completed infusion; IV Intake: [id number] 20:52 Drug: morphine 4 mg Route: IVP; Site: left antecubital; ls4 21:00 Follow up: Response: No adverse reaction; Pain is decreased ls4 21:19 Drug: Potassium Chloride 20 mEq Route: IV; Rate: calculated rate; Site: left ls4 antecubital; Intake: 20:46 IV: 1000ml; Total: 1000ml. ls4 21:24 IV: 50ml; Total: 1050ml. ls4 Outcome: 20:38 Decision to Hospitalize by Provider. cp 21:02 Admitted to Med/surg accompanied by tech, family with patient, via stretcher, room 209, ls4 Report called to LUZ LI RN 22:22 Patient left the ED. ls4 Signatures: Dispatcher [employer] EDMS Abdullahi Perez RN RN la1 Mino Burrows PA PA cp Jaqui Vitale Sheri sb2 Payal Rodgers dt2 Javi Lancaster RN RN rv Luz Jose RN RN ls4 Corrections: (The following items were deleted from the chart) 18:18 18:14 Reassessment: FISISHED CONTRAST AT 1810H rv ls4
--- NOTE | 2018-07-30 20:40 | EDPHYS ---
Physician Documentation [facility] Name: Yonatan Rosario Age: 47 yrs Sex: Male : 1970 Arrival Date: 07/30/2018 Time: 17:32 Bed 25 Private MD: Talib Muñoz ED Physician Terry Wallace HPI: 07/30 17:56 This 47 yrs old Male presents to ER via Ambulatory with complaints of cp Abdominal Pain. 17:56 The patient presents with abdominal pain that is diffuse, abdominal distention that is cp diffuse. Onset: The symptoms/episode began/occurred 1 month(s) ago, and became worse 1 week(s) ago. The symptoms do not radiate. 17:56 Associated signs and symptoms: Pertinent negatives: constipation, diarrhea, dysuria, cp fever, testicular pain, vomiting. 17:56 Severity of pain: in the emergency department the pain is unchanged despite home cp interventions. Historical: - Allergies: 17:40 No Known Allergies; la1 - PMHx: 17:40 Back pain; la1 - Immunization history:: Adult Immunizations up to date. - Social history:: Smoking status: Patient/guardian denies using tobacco. - Ebola Screening: : No symptoms or risks identified at this time. ROS: 18:00 Constitutional: Negative for body aches, chills, fever, poor PO intake. cp 18:00 Eyes: Negative for injury, pain, redness, and discharge. cp 18:00 ENT: Negative for drainage from ear(s), ear pain, sore throat, difficulty swallowing, difficulty handling secretions. 18:00 Cardiovascular: Negative for chest pain. 18:00 Respiratory: Negative for cough, shortness of breath, wheezing. 18:00 Abdomen/GI: Positive for abdominal pain, Negative for vomiting, diarrhea, constipation, black/tarry stool, rectal bleeding. 18:00 Back: Negative for radiated pain. 18:00 : Negative for urinary symptoms, flank pain, testicular pain 18:00 Skin: Negative for cellulitis, rash. 18:00 Neuro: Negative for altered mental status, headache, weakness. 18:00 All other systems are negative. Exam: 17:51 ECG was reviewed by the Attending Physician. cp 18:05 Constitutional: The patient appears in no acute distress, alert, awake, cp non-diaphoretic, non-toxic, well developed, well nourished. 18:05 Head/Face: Normocephalic, atraumatic. cp 18:05 Eyes: Periorbital structures: appear normal, Conjunctiva: normal, no exudate, no injection, Sclera: no appreciated abnormality, Lids and lashes: appear normal, bilaterally. 18:05 ENT: External ear(s): are unremarkable, Nose: is normal, Mouth: Lips: moist, Oral mucosa: moist, Posterior pharynx: is normal, airway is patent, no erythema, no exudate. 18:05 Chest/axilla: Inspection: normal, Palpation: is normal, no crepitus, no tenderness. 18:05 Cardiovascular: Rate: normal, Rhythm: regular, Edema: is not appreciated, JVD: is not appreciated. 18:05 Respiratory: the patient does not display signs of respiratory distress, Respirations: normal, no use of accessory muscles, no retractions, no splinting, no tachypnea, labored breathing, is not present, Breath sounds: are clear throughout, no decreased breath sounds, no stridor, no wheezing. 18:05 Abdomen/GI: Inspection: distension, that is mild, Bowel sounds: active, all quadrants, Palpation: soft, in all quadrants, moderate abdominal tenderness, in the right lower quadrant, rebound tenderness, is not appreciated. 18:05 Back: pain, is absent, ROM is normal. 18:05 Skin: cellulitis, is not appreciated, no rash present. Vital Signs: 17:40 BP 140 / 90; Pulse 71; Resp 16; Temp 97.4; Pulse Ox 98% on R/A; Weight 81.65 kg; Height la1 5 ft. 6 in. (167.64 cm); 21:04 BP 138 / 86; Pulse 69; Resp 16; Temp 98.2; Pulse Ox 99% on R/A; Pain 3/10; ls4 17:40 Body Mass Index 29.05 (81.65 kg, 167.64 cm) la1 MDM: 17:51 Patient medically screened. cp 18:00 Differential diagnosis: appendicitis, bowel obstruction, diverticulitis, gastritis, cp non-specific abd pain, pancreatitis, Ureterolithiasis, urinary tract infection. 20:20 Data reviewed: vital signs, nurses notes, lab test result(s), radiologic studies, CT cp scan. 20:20 Counseling: I had a detailed discussion with the patient and/or guardian regarding: the cp historical points, exam findings, and any diagnostic results supporting the discharge/admit diagnosis, lab results, radiology results, the need for further work-up and treatment in the hospital. 20:45 Physician consultation: Atul Fernandez MD was called at 20:25, was contacted at 20:30, cp regarding admission, to the medical/surgical unit. patient's condition. 07/30 17:58 Order name: Basic Metabolic Panel; Complete Time: 18:57 cp 07/30 18:58 Interpretation: Normal except: K 3.2; GFR 60. cp 07/30 17:58 Order name: CBC with Diff; Complete Time: 18:57 cp 07/30 18:58 Interpretation: Normal except: EOSINOPHIL % 5.8; MPV 7.5. cp 07/30 17:58 Order name: Creatinine for Radiology; Complete Time: 18:57 cp 07/30 17:58 Order name: Hepatic Function; Complete Time: 18:57 cp 07/30 19:33 Interpretation: Normal except: GLOB 3.8; AST 10. cp 07/30 17:58 Order name: Lipase; Complete Time: 18:57 cp 07/30 18:58 Interpretation: Within normal limits: LIP 193. cp 07/30 18:17 Order name: Urine Dipstick--Ancillary (enter results); Complete Time: 19:32 gm 07/30 19:32 Interpretation: Normal except: UBLD 2+. cp 07/30 20:47 Order name: Protime (+INR) EDMS 07/30 20:47 Order name: PTT, Activated Partial Thromb EDMS 07/30 20:47 Order name: Basic Metabolic Panel EDMS 07/30 20:47 Order name: Basic Metabolic Panel EDMS 07/30 20:47 Order name: CBC with Automated Diff EDMS 07/30 20:47 Order name: CBC with Automated Diff EDMS 07/30 20:47 Order name: Lipase EDMS 07/30 20:47 Order name: Lipase EDMS 07/30 17:57 Order name: EKG Electrocardiogram EDMS 07/30 17:58 Order name: IV Saline Lock; Complete Time: 18:50 cp 07/30 17:58 Order name: Labs collected and sent; Complete Time: 18:50 cp 07/30 17:58 Order name: CT Abd/Pelvis - W/Contrast: give oral contrast; Complete Time: 20:15 cp 07/30 17:58 Order name: Urine Dipstick-Ancillary (obtain specimen); Complete Time: 18:14 cp 07/30 20:22 Order name: XRAY Chest (1 view) cp 07/30 20:31 Order name: NPO; Complete Time: 20:31 cp 07/30 20:47 Order name: NPO; Complete Time: 20:48 EDMS 07/30 20:47 Order name: Liver (Hepatic) Function EDMS 07/30 20:47 Order name: Liver (Hepatic) Function EDMS EC:51 Rate is 74 beats/min. Rhythm is regular. AK interval is normal. QRS interval is normal. cp QT interval is normal. Interpreted by me. Reviewed by me. Administered Medications: 19:04 Drug: NS 0.9% 1000 ml Route: IV; Rate: 1 bolus; Site: left antecubital; ls4 20:46 Follow up: IV Status: Completed infusion; IV Intake: 1000ml ls4 20:40 Drug: Zosyn 3.375 grams Route: IVPB; Infused Over: 60 mins; Site: left antecubital; ls4 21:24 Follow up: Response: No adverse reaction; IV Status: Completed infusion; IV Intake: [id number] 20:52 Drug: morphine 4 mg Route: IVP; Site: left antecubital; ls4 21:00 Follow up: Response: No adverse reaction; Pain is decreased ls4 21:19 Drug: Potassium Chloride 20 mEq Route: IV; Rate: calculated rate; Site: left ls4 antecubital; Disposition: 07/30/18 20:38 Hospitalization ordered by Atul Fernandez for Observation. Preliminary diagnosis is Acute appendicitis. - Bed requested for Telemetry/MedSurg (observation). - Status is Observation. ls4 - Condition is Stable. - Problem is new. - Symptoms have improved. UTI on Admission? No Addendum: 08/03/2018 07:03 Co-signature as Attending Physician, Terry Wallace MD. r n Signatures: Dispatcher [employer] EDMI Isa Galindo RN RN mw Nieto, Roman, MD MD rn Attema, Lee, RN RN la1 Mino Burrows PA PA cp Stewart, Lisa, RN RN ls4 Corrections: (The following items were deleted from the chart) 07/30 20:44 20:38 Hospitalization Ordered by Atul Fernandez MD for Observation. Preliminary diagnosis mw is Acute appendicitis. Bed requested for Telemetry/MedSurg (observation). Status is Observation. Condition is Stable. Problem is new. Symptoms have improved. UTI on Admission? No. cp 22:22 20:44 07/30/2018 20:38 Hospitalization Ordered by Atul Fernandez MD for Observation. ls4 Preliminary diagnosis is Acute appendicitis. Bed requested for Telemetry/MedSurg (observation). Status is Observation. Condition is Stable. Problem is new. Symptoms have improved. UTI on Admission? No. mw
[2018-07-30] MEDS ORDERED: MORPHINE 4 MG/ML SYR IV PRN (20:42)
[2018-07-30] MEDS ORDERED: ACETAMINOPHEN 500 MG TAB PO PRN (20:42)
[2018-07-30] MEDS ORDERED: ONDANSETRON 4 MG/2 ML VIAL IV PRN (20:42)
[2018-07-30] MEDS ORDERED: KCL 20 MEQ/100 mL IVPB 20 MEQ/100 ML BAG IV ONE (20:48)
[2018-07-30] MEDS ORDERED: PIPER/TAZO/NS 3.375gm 3.375 GM/100 ML BAG ONE (20:48)
--- NOTE | 2018-07-30 20:54 | RAD REPORT ---
EXAM DESCRIPTION: RAD - Chest Single View - 07/30/2018 8:46 pm CLINICAL HISTORY: acute appendicitis Chest pain. COMPARISON: <Comparisons> FINDINGS: Portable technique limits examination quality. The lungs are grossly clear. Cardiac silhouette is mildly prominent. No displaced fractures.
[2018-07-30 22:46] VITALS: BMI 30.2
[2018-07-30] MEDS: D5 0.45 NS 1,000 ML IV SCH (23:22)
[2018-07-31] MEDS ORDERED: PIPER/TAZO/NS 3.375gm 3.375 GM/100 ML BAG ONE (05:27)
[2018-07-31] MEDS ORDERED: INFLUENZA VACCINE (for 3y+) 0.5 ML DOSE IMVAC ONE (06:00)
[2018-07-31] MEDS ORDERED: PIPER/TAZO/NS 3.375gm 3.375 GM/100 ML BAG IVPB SCH (06:00)
[2018-07-31 06:13] LABS: Absolute Lymphocytes (CBC) 1.6 K/uL (0.7-4.9); Absolute Monocytes 0.4 K/uL (0.1-1.3); Absolute Neutrophil 2.2 K/uL (1.8-8.0); Basophils % 0.4 % (0-1.3); Eosinophils % 8.5 % (0-4.4); Hematocrit 42.5 % (39.6-49.0); Lymphocytes % 34.6 % (15.3-44.8); MCH 28.4 pg (27.0-35.0); MCV 84.2 fL (80-100); MPV 7.5 fL (7.6-11.3); Monocytes % 8.7 % (3.3-12.3); RBC Red Blood Cell Count 5.04 M/uL (4.33-5.43)
[2018-07-31 06:23] LABS: Protime INR 1.08
[2018-07-31] MEDS: Ringers Lactate 1,000 ML IV ONE (06:24)
[2018-07-31] MEDS ORDERED: PROPOFOL 200 MG/20 ML VIAL IV ONE (06:32)
[2018-07-31 06:33] LABS: Albumin 3.2 g/dL (3.4-5.0); Bilirubin Direct 0.1 mg/dL (0-0.2); Bilirubin Total 0.5 mg/dL (0.2-1.0); Protein, Total 6.2 g/dL (6.4-8.2)
[2018-07-31] MEDS ORDERED: FENTANYL CITR 100 MCG/2 ML ONE ×2 (06:33→07:12)
[2018-07-31] MEDS ORDERED: ROCURONIUM 50 MG/5 ML VIAL IV ONE (06:33)
[2018-07-31] MEDS ORDERED: KETOROLAC 30 MG/ML INJ ONE (06:55)
[2018-07-31] MEDS ORDERED: DEXAMETHASONE 10 MG/ML VIAL ONE (06:55)
[2018-07-31] MEDS ORDERED: ONDANSETRON 4 MG/2 ML VIAL ONE (06:55)
[2018-07-31] MEDS: D5 0.45 NS 1,000 ML IV SCH ×2 (07:00→16:28)
[2018-07-31] MEDS ORDERED: GLYCOPYRROLATE 0.2 MG/ML SYR ONE (07:00)
[2018-07-31] MEDS ORDERED: NEOSTIGMINE 1 MG/ML -5 ML SYRINGE ONE (07:00)
--- NOTE | 2018-07-31 07:17 | P.OP ---
Preoperative diagnosis: Acute Appendicitis Postoperative diagnosis: same Primary procedure: Lap Appy Anesthesia: General Estimated blood loss: min Specimen: Appy Findings: as above Complications: None Transferred to: Recovery Room Condition: Good
[2018-07-31] MEDS: PIPER/TAZO/NS 3.375gm 3.375 GM/100 ML BAG IVPB SCH ×2 (07:26→16:28)
[2018-07-31] MEDS ORDERED: ONDANSETRON 4 MG/2 ML VIAL IV PRN (07:28)
--- NOTE | 2018-07-31 07:41 | PREOPHP ---
Date of Admission: 07/30/2018 Reason: Abdominal pain. History Of Present Illness: The patient is a 47-year-old gentleman, who has had nonspecific abdomina l pain for the last month, however, in the last 2 days, he bend over and pain associated with no naus ea or vomiting. He does have anorexia. Pain was in the lower abdomen starting in the left side harrison g to the right lower quadrant and sometimes he has pain in the left upper quadrant and feels a little bloated. No diarrhea or constipation. No blood in his stool. No dysuria or hematuria. No sore th roat, runny nose, cough, headaches, or dizziness. No chest pain. No fever or chills. Review of Systems: Otherwise unremarkable. Past Medical History: Negative. Past Surgical History: Negative. Allergies: NO ALLERGIES. Social History: Denies smoking, drinks occasionally. Family History: Noncontributory. Physical Examination: Vital Signs: Stable, afebrile. General: Awake, alert, oriented x3. Head and Neck: Cranial nerves 2 through 12 grossly within normal limits. No neck masses. No JVD. Throat clear. Neck supple. Chest: Clear. Heart: S1, S2. Abdomen: Soft, nondistended, nontender in the upper abdomen. In the lower abdomen, right lower quad rant tenderness with rebound. No rigidity or guarding. There is mild Rovsing sign. Extremities: Adequately perfused. Nontender. Neuro: Nonfocal. Laboratory Data: White count is normal with a slight left shift. CT of the abdomen and pelvis revea ls the appendix is dilated to 14 mm with mild periappendiceal inflammation compatible with acute appe ndicitis. Assessment: Acute appendicitis. Plan: Admit n.p.o., IV fluid, IV antibiotic, to the OR for lap appy, possible open. The patient und erstands the risks, benefits, and alternatives and agrees to procedure. JUAN/ELKIN Voice ID: [id number]
[2018-07-31] MEDS ORDERED: MEPERIDINE HCL 25 MG/0.5 ML ONE (07:52)
--- NOTE | 2018-07-31 08:29 | EKG ---
Test Date: 2018-07-30 Test Time: 17:50:02 Geospatial Information Technologist: LULÚ MEASUREMENT RESULTS: Intervals: Rate: 74 SD: 132 QRSD: 92 QT: 354 QTc: 392 [place]: P: 55 SD: 132 QRS: 52 T: 39 INTERPRETIVE STATEMENTS: Normal sinus rhythm Normal ECG Compared to ECG 01/27/2018 15:32:19 No significant changes Electronically Signed On 07-31-18 08:28:46 AIRFREIGHT LOADING SUPERVISOR by Cm Villatoro
[2018-07-31] MEDS: HYDROCODONE/APAP 7.5/325 MG TAB PO PRN ×2 (09:15→20:14)
[2018-07-31] MEDS: HYDROMORPHONE HCL 1 MG/ML INJ IV PRN (12:46)
--- NOTE | 2018-07-31 19:40 | OP ---
Date of Procedure: 07/31/2018 Surgeon: Atul Fernandez MD Preoperative Diagnosis: Acute appendicitis. Postoperative Diagnosis: Acute appendicitis. Procedure Performed: Laparoscopic appendectomy. Estimated Blood Loss: Minimal. Specimen: Appendix. Findings: Above. Anesthesia: General. Complications: None. Disposition: The patient tolerated the procedure in stable condition and taken to Recovery in good g eneral condition. Procedure In Detail: The patient was brought to the OR and placed in supine position. General anest hesia was begun. The patient was prepped and draped in usual sterile fashion. Marcaine 0.5% was inf iltrated locally. A 15-blade was used to make a 1 cm supraumbilical midline incision. Subcutaneous tissue divided. The fascia was identified and divided. A #1 Vicryl stay suture was placed. Periton eal cavity was entered with sharp and blunt dissection. A 12 mm trocar was placed into the peritonea l cavity under direct vision. Pneumoperitoneum was established. Then two 5 mm trocars placed, 1 in the suprapubic region and 1 in the left lower quadrant. Laparoscopy revealed acutely inflamed append ix. No evidence of perforation. Base of the appendix and mesoappendix identified and then Endo-ELDER stapling device was used to divide both structures. Then, the appendix was retrieved through the umb ilicus via an EndoCatch bag. Right lower quadrant of abdomen irrigated and no evidence of bleeding o r bowel injury appreciated. Subsequently, all trocars were removed under direct vision. Stay suture s were tied to each other across the fascial defect. Subcutaneous wounds were irrigated. Bleeding c ontrolled with cautery. A 3-0 chromic used for subcutaneous tissue and gem were used to close th e skin. Sterile dressing was applied. The patient was awakened and taken to Recovery in good genera l condition. /MODL Voice ID: [id number] Report ID: [id number]
[2018-08-01] MEDS: PIPER/TAZO/NS 3.375gm 3.375 GM/100 ML BAG IVPB SCH ×2 (00:27→09:14)
[2018-08-01] MEDS ORDERED: PIPER/TAZO/NS 3.375gm 3.375 GM/100 ML BAG ONE (00:32)
[2018-08-01] MEDS: D5 0.45 NS 1,000 ML IV SCH ×2 (03:00→12:17)
[2018-08-01] MEDS: HYDROMORPHONE HCL 1 MG/ML INJ IV PRN ×2 (04:57→09:14)
[2018-08-01 05:28] LABS: Absolute Lymphocytes (CBC) 1.1 K/uL (0.7-4.9); Absolute Monocytes 0.5 K/uL (0.1-1.3); Absolute Neutrophil 5.2 K/uL (1.8-8.0); Basophils % 0.1 % (0-1.3); Eosinophils % 1.5 % (0-4.4); Hematocrit 34.6 % (39.6-49.0); Lymphocytes % 16.4 % (15.3-44.8); MCH 29.7 pg (27.0-35.0); MCV 83.5 fL (80-100); MPV 7.7 fL (7.6-11.3); Monocytes % 6.5 % (3.3-12.3); RBC Red Blood Cell Count 4.14 M/uL (4.33-5.43)
[2018-08-01 06:24] LABS: Magnesium 2.1 mg/dL (1.8-2.4); Phosphorus 4.4 mg/dL (2.5-4.9); Potassium 3.9 mmol/L (3.5-5.1)
[2018-08-01 08:55] VITALS: O2SAT 99
[2018-08-01 10:46] VITALS: TEMP 97.6
[2018-08-01 14:59] VITALS: BP 136/63
--- NOTE | 2018-08-02 03:52 | DS ---
Date of Discharge: 08/01/2018 Admitting Diagnosis: Acute appendicitis. Discharge Diagnosis: Acute appendicitis. Procedure Performed: Laparoscopic appendectomy. Hospital Course: The patient is a 47-year-old gentleman, who underwent the aforementioned procedure. Postoperatively, he is tolerating diet, ambulating, pain control with p.o. pain medication. Afebri le. The patient will be discharged to home. Disposition: Home. Condition: Stable. Discharge Instructions: Resume home medications and diet. Activity as tolerated. No heavy lifting. Remove outer dressing in 2 days. Shower. Keep wound clean and dry. Follow up in my office in 1 w resighini. Call for appointment. Tylenol No. 3 one tablet p.o. q.4 p.r.n. pain. Cipro 500 mg p.o. q.12 h ours. Flagyl 500 mg p.o. q.6 hours. /MODL Voice ID: [id number] Report ID: [id number]
== END 2018-08-01 13:55 | disposition home or self-care (01) ==
LOC: ER 17:29 → 2ND 20:41
PROVIDERS: ADMIT Surgery; ATTEND Surgery
PROC: 0DTJ4ZZ Resection of Appendix, Percutaneous Endoscopic Approach (ICD-10-PCS; principal; 2018-07-31 06:30)
DX: K35.80 Unspecified acute appendicitis (principal); Z23 Encounter for immunization
CPT/HCPCS: 36415; 71045; 74177; 80048; 80076; 81003; 83690; 83735; 84100; 85025; 85610; 85730; 88304; 93005; 96361; 96365; 96375; 99285; G0008; G0378; J1100; J1170; J2175; J2405; J2543; J2704; J2710; J3010; J7030; Q2035; Q9967

== ENCOUNTER 2018-08-02 13:16 | Emergency (ER) | payer OTHER ==
--- OUTSIDE RECORDS SUMMARY | 2018-08-02 13:18 | XMS REPORT | Clinical Summary ---
:1970 Author Organization [facility] Address [address] [place] [address] Care Team Providers Name Role Phone Talib [...] unspecified (Primary Dx ); Lumbar radiculopathy after 08/01/2017 Family History Medical History Relation Name Comments [...] procedure are in the results section. after 08/01/2017 Results XR Lumbar Spine Complete W Flex [...] lesions. No abnormal motion on flexion-extension views. [facility]-[id number] Procedure Note Interface, Radiology Results Incoming - [...] lesions. No abnormal motion on flexion-extension views. [facility]-[id number] Performing Organization Address [facility] Phone Number [facility] [address] [place] [address] XR Spine Scoliosos 2-3 Views (02/19/2018 4:57 [...] bony lesions. Mild multilevel endplate degenerative changes. [id number] Procedure Note Interface, Radiology Results Incoming - [...] bony lesions. Mild multilevel endplate degenerative changes. [facility]-[id number] Performing Organization Address [facility] Phone Number [facility] [address] [place] [address] MRI Spine External Study (12/03/2017 9:46 AM CDT) Narrative Performed At This exam was not acquired at a [facility] facility and has not been [facility] interpreted by a [facility] Provider.The exam was imported into our imaging system for comparisons purposes. Performing Organization Address City/State/Zipcode Phone Number [facility] [address] [place] [address] after 08/01/2017 Insurance Payer Benefit Plan / Group Subscriber ID Type Phone Address ENTRUST ENTRUST xxxxxxxxx Commercial Guarantor Name Account Type Relation to Date of Phone Billing Patient Address Yonatan Rosario Personal/Family Self 1970 [id number] (Home) [place] [address] Advance Directives Patient has advance care planning documents on file. For more information, please contact:Martin Hernandez[address] [place] [address]
--- OUTSIDE RECORDS SUMMARY | 2018-08-02 13:18 | XMS REPORT | Continuity of Care Document ---
:1970 Author Organization Interface Problems Problem Status Onset Classification Date Comments Source Date Reported J40 - Active OPID "BRONCHITIS, 7 Isle NOT SPECIFIED A" Medications Medication Details Route [...] Number For Provider Date Date Visit Outpatient [id number] WARREN 05/19 Active [facility] Procedures Procedure Code Date Perfomer Comments Source
[2018-08-02] MEDS ORDERED: DIPHENHYDRAMINE 25 MG TAB/CAP ONE (13:56)
[2018-08-02] MEDS ORDERED: FAMOTIDINE 20 MG TAB ONE (13:56)
--- NOTE | 2018-08-02 15:44 | ER ---
Nurse's Notes [facility] Name: Yonatan Rosario Age: 47 yrs Sex: Male : 1970 Arrival Date: 08/02/2018 Time: 13:19 Bed 19 Private MD: Talib Muñoz Diagnosis: Urticaria, unspecified Presentation: 08/02 13:28 Presenting complaint: Patient states: Red itchy rash to right leg, bilateral feet and aj bilateral buttocks that started this AM. Patient had appendix removed on Friday. Transition of care: patient was not received from another setting of care. Onset of symptoms was August 02, 2018. Risk Assessment: Do you want to hurt yourself or someone else? Patient reports no desire to harm self or others. Initial Sepsis Screen: Does the patient meet any 2 criteria? No. Patient's initial sepsis screen is negative. Does the patient have a suspected source of infection? No. Patient's initial sepsis screen is negative. Care prior to arrival: None. 13:28 Method Of Arrival: Ambulatory 13:28 Acuity: ARTUR 5 aj Triage Assessment: 13:30 General: Appears in no apparent distress. comfortable, Behavior is calm, cooperative, aj appropriate for age. Pain: Denies pain. Neuro: Level of Consciousness is awake, alert, obeys commands, Oriented to person, place, time, situation, Appropriate for age. Respiratory: Airway is patent Respiratory effort is even, unlabored, Respiratory pattern is regular, symmetrical. Derm: Skin is pink, warm \T\ dry. normal, Rash noted that is itchy, red, on buttocks, right foot, left foot and right leg. Historical: - Allergies: 13:30 No Known Allergies; aj - Home Meds: 13:30 Cipro Oral [Active]; Flagyl Oral [Active]; Tylenol #3 Oral [Active]; aj - PMHx: 13:30 Back pain; aj - PSHx: 13:30 Appendectomy; aj - Immunization history:: Adult Immunizations up to date. - Social history:: Smoking status: Patient uses tobacco products, chewing tobacco, Patient uses alcohol, weekly. - Ebola Screening: : Patient negative for fever greater than or equal to 101.5 degrees Fahrenheit, and additional compatible Ebola Virus Disease symptoms Patient denies exposure to infectious person Patient denies travel to an Ebola-affected area in the 21 days before illness onset No symptoms or risks identified at this time. Screenin:34 Abuse screen: Denies threats or abuse. Nutritional screening: No deficits noted. em Tuberculosis screening: No symptoms or risk factors identified. Fall Risk None identified. Assessment: 13:43 General: Appears in no apparent distress. comfortable, Behavior is calm, cooperative, em Denies fever. Pain: Denies pain. Neuro: Level of Consciousness is awake, alert, obeys commands, Oriented to person, place, time, situation. Cardiovascular: Denies shortness of breath, Capillary refill Patient's skin is warm and dry. Respiratory: Airway is patent Respiratory effort is even, unlabored, Respiratory pattern is regular, symmetrical, Breath sounds are clear bilaterally. Onset: The symptoms/episode began/occurred yesterday, Denies shortness of breath labored breathing. GI: Abdomen is round gem noted above umbilical area, suprapubic area and left lower abdomen Bowel sounds present X 4 quads. Abd is soft X 4 quads Abdomen is tender to palpation X 4 quads. : No deficits noted. EENT: No signs and/or symptoms were reported regarding the EENT system. Derm: Skin is intact, is healthy with good turgor, Skin is pink, warm \T\ dry. Rash noted that is itchy, red, on right quadriceps and right leg and right foot and buttocks. Musculoskeletal: Capillary refill < 3 seconds, Range of motion: intact in all extremities. 14:00 General: The previous assessment is accurate, call light remains within reach. ss 14:42 Reassessment: Patient appears in no apparent distress at this time. Patient and/or em family updated on plan of care and expected duration. Pain level reassessed. Patient is alert, oriented x 3, equal unlabored respirations, skin warm/dry/pink. redness has slightly improved, itchiness has improved provider notified, will continue to monitor Patient states symptoms have improved. 15:50 Reassessment: Patient appears in no apparent distress at this time. Patient and/or em family updated on plan of care and expected duration. Pain level reassessed. Patient is alert, oriented x 3, equal unlabored respirations, skin warm/dry/pink. Patient denies pain at this time. Patient states feeling better. Patient states symptoms have improved. Vital Signs: 13:30 BP 141 / 74; Pulse 84; Resp 18; Temp 98.0; Pulse Ox 100% on R/A; Weight 81.65 kg; aj Height 5 ft. 6 in. (167.64 cm); 14:42 BP 137 / 72; Pulse 81; Resp 18; Pulse Ox 99% on R/A; Pain 0/10; em 13:30 Body Mass Index 29.05 (81.65 kg, 167.64 cm) aj ED Course: 13:19 Patient arrived in ED. as 13:20 Talib Muñoz MD is Private Physician. as 13:30 Triage completed. aj 13:30 Arm band placed on left wrist. Patient placed in an exam room. aj 13:33 Alexis Che NP is PHCP. pm1 13:33 Mino Bishop MD is Attending Physician. pm1 13:33 Trevor Cotto LVN is Primary Nurse. em 13:43 Patient has correct armband on for positive identification. Placed in gown. Bed in low em position. Call light in reach. Adult w/ patient. 13:43 No provider procedures requiring assistance completed. em 15:44 Atul Fernandez MD is Referral Physician. pm1 16:16 Patient did not have IV access during this emergency room visit. em Administered Medications: 14:00 Drug: Benadryl 50 mg Route: PO; em 16:15 Follow up: Response: No adverse reaction; Marked relief of symptoms em 14:00 Drug: Pepcid 20 mg Route: PO; em 16:15 Follow up: Response: No adverse reaction; Marked relief of symptoms em Outcome: 15:44 Discharge ordered by MD. pm1 16:16 Discharged to home ambulatory, with family. em 16:16 Condition: good 16:16 Discharge instructions given to patient, family, Instructed on discharge instructions, follow up and referral plans. medication usage, Demonstrated understanding of instructions, follow-up care, medications, Prescriptions given X 2. 16:18 Patient left the ED. em Signatures: Pina Xie RN RN aj Munoz, Edgar, LVN IRRIGATION SYSTEM INSTALLER em Alissa Parada Shelby, RN RN ss Marinas, Patrick, NP FIELD REPRESENTATIVES DIRECTOR pm1 Corrections: (The following items were deleted from the chart) 14:53 13:43 Derm: Skin is intact, is healthy with good turgor, Skin is pink, warm \T\ dry. em em 16:18 14:42 BP 137 / 72; Pulse 18bpm; Resp 18bpm; Pulse Ox 99% RA; Pain 0/10; em em
--- NOTE | 2018-08-02 15:45 | EDPHYS ---
Physician Documentation [facility] Name: Yonatan Rosario Age: 47 yrs Sex: Male : 1970 Arrival Date: 08/02/2018 Time: 13:19 Bed 19 Private MD: Talib Muñoz ED Physician Mino Bishop HPI: 08/02 13:40 This 47 yrs old Male presents to ER via Ambulatory with complaints of Rash. pm1 13:40 The patient's rash thought to be caused by an unknown cause. The rash is located on the pm1 left foot and right foot and buttocks and right quadriceps. The rash can be described as urticarial, Itchy. Onset: The symptoms/episode began/occurred 2 day(s) ago. Associated signs and symptoms: Pertinent negatives: difficulty breathing, fever, nausea, Pain swelling of lips, swelling of throat, swelling of tongue, vomiting, wheezing. Severity of symptoms: in the emergency department the symptoms are worse. Treatment given at home: None. The patient has not experienced similar symptoms in the past. 13:40 The patient has been recently been admitted at [facility], was pm1 discharged yesterday, appendectomy by Dr. Fernandez. Historical: - Allergies: 13:30 No Known Allergies; aj - Home Meds: 13:30 Cipro Oral [Active]; Flagyl Oral [Active]; Tylenol #3 Oral [Active]; aj - PMHx: 13:30 Back pain; aj - PSHx: 13:30 Appendectomy; aj - Immunization history:: Adult Immunizations up to date. - Social history:: Smoking status: Patient uses tobacco products, chewing tobacco, Patient uses alcohol, weekly. - Ebola Screening: : Patient negative for fever greater than or equal to 101.5 degrees Fahrenheit, and additional compatible Ebola Virus Disease symptoms Patient denies exposure to infectious person Patient denies travel to an Ebola-affected area in the 21 days before illness onset No symptoms or risks identified at this time. ROS: 13:40 Constitutional: Negative for fever, chills, and weight loss, Eyes: Negative for injury, pm1 pain, redness, and discharge, ENT: Negative for injury, pain, and discharge, Neck: Negative for injury, pain, and swelling, Cardiovascular: Negative for chest pain, palpitations, and edema, Respiratory: Negative for shortness of breath, cough, wheezing, and pleuritic chest pain, Abdomen/GI: Negative for abdominal pain, nausea, vomiting, diarrhea, and constipation, Back: Negative for injury and pain, : Negative for injury, bleeding, discharge, and swelling, MS/Extremity: Negative for injury and deformity. 13:40 Skin: Positive for rash, of the right quadriceps and left foot and right foot and buttocks and right leg. Exam: 13:40 Constitutional: This is a well developed, well nourished patient who is awake, alert, pm1 and in no acute distress. Head/Face: Normocephalic, atraumatic. Eyes: Pupils equal round and reactive to light, extra-ocular motions intact. Lids and lashes normal. Conjunctiva and sclera are non-icteric and not injected. Cornea within normal limits. Periorbital areas with no swelling, redness, or edema. ENT: Nares patent. No nasal discharge, no septal abnormalities noted. Tympanic membranes are normal and external auditory canals are clear. Oropharynx with no redness, swelling, or masses, exudates, or evidence of obstruction, uvula midline. Mucous membranes moist. Neck: Trachea midline, no thyromegaly or masses palpated, and no cervical lymphadenopathy. Supple, full range of motion without nuchal rigidity, or vertebral point tenderness. No Meningismus. Chest/axilla: Normal chest wall appearance and motion. Nontender with no deformity. No lesions are appreciated. Cardiovascular: Regular rate and rhythm with a normal S1 and S2. No gallops, murmurs, or rubs. Normal PMI, no JVD. No pulse deficits. Respiratory: Lungs have equal breath sounds bilaterally, clear to auscultation and percussion. No rales, rhonchi or wheezes noted. No increased work of breathing, no retractions or nasal flaring. Abdomen/GI: Soft, non-tender, with normal bowel sounds. No distension or tympany. No guarding or rebound. No evidence of tenderness throughout. Back: No spinal tenderness. No costovertebral tenderness. Full range of motion. 13:40 Skin: Appearance: normal except for affected area, consistent with urticaria, on the right leg and left foot and right foot and buttocks and right quadriceps. Vital Signs: 13:30 BP 141 / 74; Pulse 84; Resp 18; Temp 98.0; Pulse Ox 100% on R/A; Weight 81.65 kg; aj Height 5 ft. 6 in. (167.64 cm); 14:42 BP 137 / 72; Pulse 81; Resp 18; Pulse Ox 99% on R/A; Pain 0/10; em 13:30 Body Mass Index 29.05 (81.65 kg, 167.64 cm) aj MDM: 13:40 Patient medically screened. pm1 14:14 ED course: Patient told Trevor that the rash actually started in the hospital the night pm1 before discharge on his right medial thigh as a small itchy hive. He did not want to tell anyone because he did not want to stay in the hospital any longer than he has stayed already. 14:14 ED course: Patient was discharged home with Cipro and Flagyl. Patient was not given the pm1 medication prior to onset of rash. Patient was given Zosyn, Zofran, Dilaudid, and Morphine during hospitalization. 15:42 Data reviewed: vital signs. Data interpreted: Pulse oximetry: on room air is 100 %. pm1 Interpretation: normal. Counseling: I had a detailed discussion with the patient and/or guardian regarding: the historical points, exam findings, and any diagnostic results supporting the discharge/admit diagnosis, the need for outpatient follow up, to return to the emergency department if symptoms worsen or persist or if there are any questions or concerns that arise at home. Administered Medications: 14:00 Drug: Benadryl 50 mg Route: PO; em 16:15 Follow up: Response: No adverse reaction; Marked relief of symptoms em 14:00 Drug: Pepcid 20 mg Route: PO; em 16:15 Follow up: Response: No adverse reaction; Marked relief of symptoms em Disposition: 08/03 06:39 Co-signature as Attending Physician, Mino Bishop MD I agree with the assessment and doug plan of care. Disposition: 08/02/18 15:44 Discharged to Home. Impression: Urticaria, unspecified. - Condition is Stable. - Discharge Instructions: Hives. - Prescriptions for Benadryl 25 mg Oral Capsule - take 1 capsule by ORAL route every 6 hours As needed; 30 tablet. Pepcid 20 mg Oral Tablet - take 1 tablet by ORAL route every 12 hours for 10 days; 20 tablet. - Work release form, Medication Reconciliation Form, Thank You Letter form. - Follow up: Emergency Department; When: As needed; Reason: Worsening of condition. Follow up: Atul Fernandez MD; When: 2 - 3 days; Reason: Recheck today's complaints, Continuance of care, Re-evaluation by your physician. - Problem is new. - Symptoms are unchanged. Signatures: Pina Xie RN RN aj Anderson, Corey, MD MD cha Munoz, Edgar, ASSISTANT PROFESSOR OF CRIMINAL JUSTICE ASSISTANT PROFESSOR OF CRIMINAL JUSTICE em Alexis Che NP BEDSPREAD CUTTER pm1 Corrections: (The following items were deleted from the chart) 08/02 16:18 15:44 08/02/2018 15:44 Discharged to Home. Impression: Urticaria, unspecified. em Condition is Stable. Forms are Medication Reconciliation Form, Thank You Letter, Antibiotic Education, Prescription Opioid Use. Follow up: Emergency Department; When: As needed; Reason: Worsening of condition. Follow up: Dr. Atul Fernandez; When: 2 - 3 days; Reason: Recheck today's complaints, Continuance of care, Re-evaluation by your physician. Problem is new. Symptoms are unchanged. pm1
[2018-08-02 18:28] VITALS: TEMP 98
[2018-08-02 18:29] VITALS: BP 137/72; O2SAT 99
== END 2018-08-02 16:18 | disposition home or self-care (01) ==
LOC: ER 13:16
DX: L50.9 Urticaria, unspecified (principal); F17.220 Nicotine dependence, chewing tobacco, uncomplicated
CPT/HCPCS: 99283

== ENCOUNTER 2022-03-29 05:51 | Day surgery (SDC) | payer OTHER ==
[2022-03-25 11:53] LABS: SARS-CoV-2 Antigen Rapid Res Negative (Negative)
[2022-03-25 11:58] LABS: Absolute Lymphocytes (CBC) 1.2 K/uL (0.7-4.9); Hematocrit 46.9 % (39.6-49.0); Lymphocytes % 25.6 % (15.3-44.8); MCV 86.2 fL (80-100); MPV 7.2 fL (7.6-11.3); RBC Red Blood Cell Count 5.44 M/uL (4.33-5.43)
[2022-03-29] MEDS: Ringers Lactate 1,000 ML IV ONE (06:18)
[2022-03-29] MEDS ORDERED: propofoL 200 MG/20 ML VIAL IV ONE (06:50)
[2022-03-29] MEDS ORDERED: LIDOCAINE 2% MPF 5 ML VIAL ONE (06:51)
[2022-03-29] MEDS ORDERED: MIDAZOLAM HCL 2 MG/2 ML INJ ONE (06:51)
[2022-03-29] MEDS ORDERED: ONDANSETRON 4 MG/2 ML VIAL ONE ×2 (06:51→08:23)
[2022-03-29] MEDS ORDERED: FENTANYL CITR 100 MCG/2 ML ONE (06:51)
[2022-03-29] MEDS: HYDROMORPHONE HCL 1 MG/ML INJ ONE ×2 (08:18→08:24)
[2022-03-29 09:34] VITALS: BP 111/73; TEMP 97.3; O2SAT 99
--- NOTE | 2022-03-29 19:10 | OP ---
Date of Procedure: 03/29/2022 Surgeon: Leandro Car MD Preoperative Diagnosis: Right severe carpal tunnel syndrome. Postoperative Diagnosis: Right severe carpal tunnel syndrome. Procedure: Right open carpal tunnel release. Complications: There were no complications. Estimated Blood Loss: Less than 3 cc. Specimen: No pathology specimen sent. Indications For Operation: Mr. Rosario arrived to see me with complaints of severe numbness and tingli ng as well as pain in both of his hands. He has been seen by Neurology, has been diagnosed with carp al tunnel syndrome. Risks, benefits, and alternatives of different methods of treating, this have be en discussed with the patient. He states he understands things as presented and has failed conservat darlyn management and agrees to proceed. Description Of Procedure: The patient was taken to the operating room and placed in supine position. General anesthesia was obtained by the staff. Following this, a well-padded tourniquet was placed on superior right arm. Right upper extremity was then prepped and draped in usual sterile fashion fo r procedure. Following this, this was then elevated, but not exsanguinated. Tourniquet was raised. A standard incision was made that was parallel to the thenar crease, slight ulnar deviation at the m ost distal wrist crease. This was taken down carefully through skin only. Meticulous hemostasis tarun ng maintained using Bovie electrocautery. This leads down to the palmar fascia, which was then divid ed longitudinally. Any obstructions over the transverse carpal ligament were gently spread to the si de in the thumb. A polo was made in the transcarpal ligament, which demonstrates underlying median n erve and carpal tunnel structures. After this, this was then extended in a distal to proximal direct ion until there were no constricting bands that includes a fairly significant amount of volar forearm fascia. This was then continued in a proximal to distal fashion again until there were no constrict ing bands. At the conclusion of the case, the median nerve was noted to be slightly hyperemic, but o therwise intact. The wound was gently irrigated and closed using nylon sutures. The patient was the n placed in a well-padded sterile dressing, awakened, and taken to recovery room in good condition. At no time were any sharp instruments placed outside the direct operative visual field. SE/MODL Voice ID: [id number] Report ID: [id number]
== END 2022-03-29 08:47 | disposition home or self-care (01) ==
LOC: OR 05:51
PROVIDERS: ATTEND Orthopaedic Surgery
PROC: 01N50ZZ Release Median Nerve, Open Approach (ICD-10-PCS; principal; 2022-03-29 07:00)
DX: G56.01 Carpal tunnel syndrome, right upper limb (principal); Z20.822 Contact with and (suspected) exposure to COVID-19
CPT/HCPCS: 85025; 36415; 87811; 64721; J2704; J2250; J3010; J1170; J7120; J2405 ×2

== ENCOUNTER 2022-09-10 16:23 | Emergency (ER) | payer OTHER ==
--- OUTSIDE RECORDS SUMMARY | 2022-09-10 16:25 | XMS REPORT | Continuity of Care Document ---
:1970 Author Organization [facility] t Address [address] [place] [address] Care Team Providers Name Role Phone Toni SHULTZ, Talib Primary Care Physician Jr Pathak Attending Clinician Problems Condition Condition Condition Status Onset Resolution Last Treating Co mments Source Name Details Category Date Date Treatment Clinician Date HNP HNP Disease Active [facility] (herniated (herniated 6-[facility] st nucleus nucleus 00:00: Hospita pulposus), pulposus), 00 l lumbar lumbar Acute Acute Disease Active [facility] bilateral bilateral [facility] low back low back 00:00: Hospit a pain with pain with 00 l left-sided left-sided sciatica sciatica Lumbar Lumbar Disease Active [facility] radiculopa radiculopa 6-28 [facility] thy, thy, 00:00: Hospita chronic chronic 00 l J40 - J40 - Diagnosis Active 2017-05-23 Mem oria "BRONCHITI "BRONCHITI 05-19 14:59:00 l S, NOT S, NOT 00:01: Aurelio SPECIFIED SPECIFIED 00 A" A" Active 05/19/2017 [facility] Purmela Carpal Carpal Problem Active 2022-02-09 Mem oria tunnel tunnel 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 Family History Family Member Diagnosis Comments Start Date Stop Date Source Natural mother Arthritis [facility] Social History Social Habit Start Date Stop Date Quantity Comments Source History of Snuff User [facility] use [facility] Tobacco use and 2018-02-19 2018-02-19 User of smokeless [facility] exposure 00:00:00 00:00:00 tobacco Hospital Alcohol intake 2018-02-19 2018-02-19 Current drinker of [facility] 00:00:00 00:00:00 alcohol (finding) Hospita l Alcohol Comment 2018-02-19 2018-02-19 ocassional [facility] 00:[facility]:00 00:[facility]:00 Hospital Sex Assigned At [birth year] [facility] 00:00:00 00:[facility]:00 [facility] Smoking Status Start Date Stop Date Source Social History [facility] Medications Ordered Filled Start Stop Current Ordering Indication Dosage Frequency Signature Comments Components Source Medication Medication Date Date Medication? Clinician (SIG) Name Name ibuprofen Yes 200mg Q6H Take 200 Met hodi (ADVIL,MOTR 6-[address] [place]) 200 MG 15:12: mouth Hospit a tablet 37 every 6 l (six) hours as needed for mild pain. Procedures This patient has no known procedures. Plan of Care Planned Activity Planned Date Details Comments Source Future Scheduled 2022-08-10 COVID-19 VACCINE (#1) [facility] Test 13:52:58 [code = COVID-19 VACCINE (#1)] Future Scheduled 2022-08-10 COLONOSCOPY SCREENING [facility] Test 13:52:58 [code = COLONOSCOPY SCREENING] Future Scheduled 2022-08-10 INFLUENZA VACCINE Method [facility] Test 13:52:58 [code = INFLUENZA VACCINE] Encounters Start End Encounter Admission Attending Care Care Encounter Source Date/Time Date/Time Type Type Clinicians Facility Department ID 2022-02-22 Outpatient [facility] [id number] Common 08:46:02 [facility] 2021-12-27 Outpatient [facility] [id number] Common 13:59:03 [facility] 2022-02-06 2022-02-07 Outpatient nullFlavo MNA [id number] Memoria 13:15:00 04:59:59 r Neurology 02 l Holland Carey 2022-02-06 2022-02-06 Outpatient HARRY Pathak MARIELASCHMICHOACANO [id number] 08:15:00 23:59:59 Jr 02 Romeo 2022-02-06 2022-02-06 Outpatient [facility] [id number] Memoria 08:15:00 08:15:00 02 cherise Carey 2020-08-04 2020-08-04 Ambulatory nullFlavo MNA [id number] Memoria 14:15:00 14:15:00 Pre-Reg r Neurology 01 l Holland Carey 2020-08-04 2020-08-04 Outpatient [facility] [id number] Memoria 08:15:00 08:15:00 01 cherise Carey 2020-08-04 2020-08-04 Outpatient HARRY Pathak MARIELASCHMICHOACANO [id number] 08:15:00 08:15:00 Jr 01 Romeo 2017-05-19 2017-05-19 Outpatient [facility] [id number] Memoria 10:50:00 10:50:00 00 cherise Daniel This patient has no known results.
[2022-09-10 16:59] LABS: Absolute Lymphocytes (CBC) 1.1 K/uL (0.7-4.9); Hematocrit 46.9 % (39.6-49.0); Lymphocytes % 20.3 % (15.3-44.8); MCV 90.2 fL (80-100)
[2022-09-10 17:04] LABS: Protime INR 0.92
--- NOTE | 2022-09-10 17:13 | RAD REPORT ---
EXAM DESCRIPTION: RAD - Chest Single View - 09/10/2022 5:03 pm CLINICAL HISTORY: CHEST PAIN COMPARISON: Chest Single View dated 07/30/2018; Chest Single View dated 01/27/2018; Chest Single View d ated 03/07/2017; CHEST SINGLE VIEW dated 03/27/2008 FINDINGS: Lines: None. Lungs: No evidence of edema or pneumonia. Pleural: No significant pleural effusions or pneumothorax. Cardiac: The heart size is within normal limits. Mediastinum: Within normal limits. Bones: No acute fractures. Other: None IMPRESSION: No acute cardiopulmonary disease.
[2022-09-10 17:19] LABS: Albumin 3.8 g/dL (3.4-5.0); Bilirubin Total 0.3 mg/dL (0.2-1.0); Magnesium 2.3 mg/dL (1.6-2.4); Potassium 3.8 mmol/L (3.5-5.1); Protein, Total 7.3 g/dL (6.4-8.2); Troponin High Sensitivity 4.9 pg/mL (<58.9)
--- NOTE | 2022-09-10 17:30 | EDPHYS ---
Physician Documentation [facility] Name: Yonatan Rosario Age: 51 yrs Sex: Male : 1970 Arrival Date: 09/10/2022 Time: 16:24 Bed 11 Private MD: Talib Muñoz ED Physician Jc English HPI: 09/10 17:13 This 51 yrs old Male presents to ER via Ambulatory with complaints of Chest Pain, shaky.kb 17:13 The patient or guardian reports chest pain that is located primarily in the anterior kb chest wall, left. Onset: 3 day(s) ago. The pain radiates to the left shoulder. Associated signs and symptoms: Pertinent positives: nausea, shortness of breath. The chest pain is described as tight. Duration: The patient or guardian reports a single episode, that is still ongoing. Modifying factors: The symptoms are alleviated by nothing. the symptoms are aggravated by nothing. Severity of pain: At its worst the pain was mild moderate in the emergency department the pain is unchanged. The patient has not experienced similar symptoms in the past. The patient has been recently seen by a physician: the patient's primary care provider. Pt reports he went to his PCP for a routine check up today and told him that he's been having chest pain with shortness of breath for 3 days so he was sent to the ER for evaluation. Historical: - Allergies: 16:37 No Known Allergies; aa5 - Home Meds: 16:37 None [Active]; aa5 - PMHx: 16:37 Back pain; aa5 - PSHx: 16:37 Appendectomy; carpal tunnel; foot sx; aa5 - Immunization history:: Adult Immunizations unknown. - Social history:: Smoking status: Patient denies any tobacco usage or history of. ROS: 17:13 Constitutional: Negative for fever, chills, and weight loss. kb 17:13 Cardiovascular: Positive for chest pain. 17:13 Respiratory: Positive for shortness of breath. 17:13 Abdomen/GI: Positive for nausea. 17:13 All other systems are negative. Exam: 17:13 Constitutional: This is a well developed, well nourished patient who is awake, alert, kb and in no acute distress. Head/Face: Normocephalic, atraumatic. ENT: Moist Mucous membranes Cardiovascular: Regular rate and rhythm with a normal S1 and S2. No gallops, murmurs, or rubs. No pulse deficits. Respiratory: Respirations even and unlabored. No increased work of breathing. Talking in full sentences Abdomen/GI: Soft, non-tender. No distention Skin: Warm, dry with normal turgor. Normal color. MS/ Extremity: Pulses equal, no cyanosis. Neurovascular intact. Full, normal range of motion. Neuro: Awake and alert, GCS 15, oriented to person, place, time, and situation. Moves all extremities. Normal gait. Psych: Awake, alert, with orientation to person, place and time. Behavior, mood, and affect are within normal limits. Vital Signs: 16:36 BP 155 / 93; Pulse 79; Resp 18 S; Temp 98.7(TE); Pulse Ox 99% ; Weight 83.91 kg (R); aa5 Height 5 ft. 5 in. (165.10 cm) (R); 16:36 Body Mass Index 30.79 (83.91 kg, 165.10 cm) aa5 MDM: 16:25 Patient medically screened. kb 17:13 Data reviewed: vital signs, nurses notes. kb 17:13 Management of patient was discussed with the following: Primary Care Provider: Dr wes Muñoz. 17:30 Differential diagnosis: abnormal EKG, acute myocardial infarction, coronary artery kb disease chest wall pain. Consideration of Admission/Observation Escalation of care including admission/observation considered. Management of patient was discussed with the following: Dr English. Test considered but Not performed: Other Details CT chest to rule out PE considered, but d-dimer normal, heart rate normal, O2 99% on room air. Counseling: I had a detailed discussion with the patient and/or guardian regarding: the historical points, exam findings, and any diagnostic results supporting the discharge/admit diagnosis, lab results, radiology results, the need for outpatient follow up, a firesetter, a family practitioner, to return to the emergency department if symptoms worsen or persist or if there are any questions or concerns that arise at home. 09/10 16:25 Order name: CBC with Diff; Complete Time: 17:01 kb 09/10 16:25 Order name: D-Dimer; Complete Time: 17:12 kb 09/10 16:25 Order name: Magnesium; Complete Time: 17:20 kb 09/10 16:25 Order name: NT PRO-BNP; Complete Time: 17:20 kb 09/10 16:25 Order name: PT-INR; Complete Time: 17:12 kb 09/10 16:25 Order name: Troponin HS; Complete Time: 17:20 kb 09/10 16:25 Order name: XRAY Chest (1 view); Complete Time: 17:15 kb 09/10 16:25 Order name: EKG; Complete Time: 16:26 kb 09/10 16:25 Order name: Cardiac monitoring kb 09/10 16:25 Order name: EKG - Nurse/Tech; Complete Time: 16:44 kb 09/10 16:25 Order name: IV Saline Lock; Complete Time: 16:44 kb 09/10 16:25 Order name: Labs collected and sent; Complete Time: 16:44 kb 09/10 16:25 Order name: O2 Per Protocol; Complete Time: 17:29 kb 09/10 16:25 Order name: CMP; Complete Time: 17:20 kb 09/10 16:25 Order name: O2 Sat Monitoring; Complete Time: 17:29 kb Administered Medications: No medications were administered Disposition Summary: 09/10/22 17:30 Discharge Ordered Location: Home kb Condition: Stable kb Diagnosis - Chest pain, unspecified kb Followup: kb - With: Emergency Department - When: As needed - Reason: Worsening of condition Followup: kb - With: Private Physician - When: 2 - 3 days - Reason: Recheck today's complaints, Continuance of care, Re-evaluation by your physician Discharge Instructions: - Discharge Summary Sheet kb - Nonspecific Chest Pain, Adult, [id number] kb Forms: - Medication Reconciliation Form kb - Thank You Letter kb - Antibiotic Education kb - Prescription Opioid Use kb - Work release form vg1 Signatures: Dispatcher [employer] Dorothy Cuellar, MATEUSZ-C MATEUSZ-Lesley Armando, RN RN aa5
--- NOTE | 2022-09-10 17:30 | ER ---
Nurse's Notes [facility] Name: Yonatan Rosario Age: 51 yrs Sex: Male : 1970 Arrival Date: 09/10/2022 Time: 16:24 Bed 11 Private MD: Talib Muñoz Diagnosis: Chest pain, unspecified Presentation: 09/10 16:36 Chief complaint: Patient states: chest pressure x 3 days ago and sent here by Dr. gisselle Muñoz for abnormal EKG. Coronavirus screen: At this time, the client does not indicate any symptoms associated with coronavirus-19. Ebola Screen: Patient denies travel to an Ebola-affected area in the 21 days before illness onset. Initial Sepsis Screen: Does the patient meet any 2 criteria? No. Patient's initial sepsis screen is negative. Does the patient have a suspected source of infection? No. Patient's initial sepsis screen is negative. Risk Assessment: Do you want to hurt yourself or someone else? Patient reports no desire to harm self or others. Onset of symptoms was August 2022. 16:36 Method Of Arrival: Ambulatory aa5 16:36 Acuity: ARTUR 3 aa5 Historical: - Allergies: 16:37 No Known Allergies; aa5 - Home Meds: 16:37 None [Active]; aa5 - PMHx: 16:37 Back pain; aa5 - PSHx: 16:37 Appendectomy; carpal tunnel; foot sx; aa5 - Immunization history:: Adult Immunizations unknown. - Social history:: Smoking status: Patient denies any tobacco usage or history of. Screenin:37 [facility] ED Fall Risk Assessment (Adult) History of falling in the last 3 months, vg1 including since admission No falls in past 3 months (0 pts) Confusion or Disorientation No (0 pts) Intoxicated or Sedated No (0 pts) Impaired Gait No (0 pts) Mobility Assist Device Used No (0 pt) Altered Elimination No (0 pt) Score/Fall Risk Level 0 - 2 = Low Risk Oriented to surroundings, Maintained a safe environment, Educated pt \T\ family on fall prevention, incl call for assistance when getting out of bed, Assessed \T\ reinforced patient's understanding of fall precautions. Abuse screen: Denies threats or abuse. Denies injuries from another. Nutritional screening: No deficits noted. Tuberculosis screening: No symptoms or risk factors identified. Assessment: 17:37 General: Appears in no apparent distress. comfortable, Behavior is calm, cooperative. vg1 Pain: Denies pain. Pain does not radiate. Pain began 2-3 days ago. Neuro: Level of Consciousness is awake, alert, obeys commands, Oriented to person, place, time, situation. Cardiovascular: Patient's skin is warm and dry. Respiratory: Airway is patent Respiratory effort is even, unlabored, Respiratory pattern is regular, Denies shortness of breath. Derm: Skin is pink, warm \T\ dry. Vital Signs: 16:36 BP 155 / 93; Pulse 79; Resp 18 S; Temp 98.7(TE); Pulse Ox 99% ; Weight 83.91 kg (R); aa5 Height 5 ft. 5 in. (165.10 cm) (R); 16:36 Body Mass Index 30.79 (83.91 kg, 165.10 cm) aa5 ED Course: 16:24 Patient arrived in ED. am2 16:24 Talib Muñoz MD is Private Physician. am2 16:25 Dorothy Steven FNP-C [facility]. kb 16:25 Jc English MD is Attending Physician. kb 16:36 Arm band placed on. aa5 16:37 Triage completed. aa5 16:44 Initial lab(s) drawn, by me, sent to lab. Inserted saline lock: 20 gauge in right aa5 antecubital area, using aseptic technique. Blood collected. 17:05 XRAY Chest (1 view) In Process Unspecified. EDMS 17:37 Patient has correct armband on for positive identification. vg1 17:37 No provider procedures requiring assistance completed. IV discontinued, intact, vg1 bleeding controlled, No redness/swelling at site. Pressure dressing applied. Patient maintains SpO2 saturation greater than 95% on room air. Administered Medications: No medications were administered Medication: 17:37 VIS not applicable for this client. vg1 Outcome: 17:30 Discharge ordered by . kb 17:37 Discharged to home ambulatory, with family. vg1 17:37 Condition: good 17:37 Discharge instructions given to patient, family, Instructed on discharge instructions, follow up and referral plans. Demonstrated understanding of instructions, follow-up care. 17:39 Patient left the ED. vg1 Signatures: Dispatcher [employer] EDPR Maurizio, Dorothy, PROPERTY CLAIMS ADJUSTER-C PROPERTY CLAIMS ADJUSTER-CkLesley Alegria, RN RN aa5 Pina Wade am2 Quita Redmond, RN RN vg1
[2022-09-10 18:22] VITALS: BP 155/93; TEMP 98.7; O2SAT 99
== END 2022-09-10 17:39 | disposition home or self-care (01) ==
LOC: ER 16:23
DX: R07.89 Other chest pain (principal); R06.02 Shortness of breath; R11.0 Nausea
CPT/HCPCS: 36415; 71045; 80053; 83735; 83880; 84484; 85025; 85379; 85610